=== PATIENT | female | born 2000 | race Hispanic/Latino ===

== ENCOUNTER 2019-06-19 16:47 | Emergency (ER) | payer OTHER, SELFPAY ==
--- OUTSIDE RECORDS SUMMARY | 2019-06-19 16:49 | XMS REPORT ---
:[address] [facility] t Address [address] [place] [address] Care Team Providers Name Role Phone Unavailable Unavailable Unavailable Problems This patient has no known problems. Allergies, Adverse Reactions, Alerts This patient has no known allergies or adverse reactions. Medications This patient has no known medications.
--- OUTSIDE RECORDS SUMMARY | 2019-06-19 16:49 | XMS REPORT | Summary of Care ---
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 Encounter Details Date Type Department Care Team Description 05/02/2019 Office Visit [facility]- Jessica Smith Enc ounter for Nexplanon removal (Primary Dx); [facility] Encounter for initial prescription of co ntraceptive pills; [address] Elevated BP without diagnosis of hyperte nsion; [place], [place] A Pain pelvic [id number] [place], [place] [id number] Allergies Active Allergy Reactions Severity Noted Date Comments Codeine Hives 05/17/2017 documented as of this encounter (statuses as of 05/02/2019) Medications Medication Sig Dispensed Refills Start Date End Date Status norethindrone 0.35 mg Take 1 tablet by 4 Package 3 05/02/2019 Active tabletIndications: mouth daily. Encounter for initial prescription of contraceptive pills documented as of this encounter (statuses as of 05/02/2019) Active Problems Problem Noted Date Encounter for initial prescription of contraceptive pi lls 05/02/2019 BMI 40.0-44.9, adult 02/15/2019 Elevated BP without diagnosis of hypertension 02/15/19 20 Generalized anxiety disorder 04/24/2015 Overview: Tried Paxil and she had adverse effects - depression/lack of motivation. Abnormal liver enzymes 01/16/2014 Overview: Patient has had workup for abdominal pain in the past with [facility] gastroenterology. Workup revealed mild fatty liver disease with mild elevations in liver function tests. Last results available are from January 2014 and re vealed an AST 29, ALT 33 (range is 6-30 U/L), GGT 27 (14-26), and alkaline phosphatase 106. Mother reports that the patient was given Zantac for suspected gastroe sophageal reflux and had no improvement in her symptoms. She was lost to follow up with gastroenterology. Note: Immunity panel revealed lack of protection against hepatitis B, patient should be revaccinated with follow-up titers. Irregular menstrual cycle 09/26/2013 Overview: Patient has secondary amenorrhea and has on average [address] Hancock is managing this issue - began Provera 12/16 015 Acanthosis nigricans 09/26/2013 Dyslexia documented as of this encounter (statuses as of 05/02/2019) Resolved Problems Problem Noted Date Resolved Date Nexplanon in place 02/25/2016 05/02/2019 Chronic pain of breast 04/25/2015 02/15/2019 Childhood obesity 09/26/2013 02/15/2019 Overview: Lab work available from September 2013 reve als cholesterol 153, elevated triglycerides 193, low HDL 33 and normal LDL 81, fasti ng blood glucose 82, hemoglobin A1c of 4.8. Normal thyroid function tests found date d 01/2014. Failed vision screen 09/26/2013 02/15/2019 Overview: Patient wears corrective lenses documented as of this encounter (statuses as of 05/02/2019) Immunizations Name Administration Dates Next Due DTAP 10/16/2003, 02/27/2003, 03/16/2000, 01/11/2000, 1999 HEPATITIS A 09/26/2013, 05/13/2005 HIB 4 Dose Schedule 02/27/2003, 06/15/2000, 03/16/2000, 1999 HPV9 02/15/2019 Hep B, Adol or Pedi Dosage 03/16/2000, 1999, 0 MMR 10/16/2003, 02/27/2003 Meningococcal Polysaccharide (groups 09/29/2011 A, C, Y and W-135) conjugate vaccine (MCV4P) Polio (IPV/OPV) 10/16/2003, 03/16/2000, 01/11/2000, 1999 Tdap 09/29/2011 Varicella (varivax)(chicken pox) 09/29/2011, 02/27/2003 documented as of this encounter Social History Tobacco Use Types Packs/Day Years Used Date Current Some Day Smoker Cigarettes Star juan: 02/15/2017 Smokeless Tobacco: Never Used Alcohol Use Drinks/Week oz/Week Comments No Sex Assigned at Date Recorded Not on file Job Start Date Occupation Industry Not on file Not on file Not on file Travel History Travel Start Travel End No recent travel history available. documented as of this encounter Last Filed Vital Signs Vital Sign Reading Time Taken Comments Blood Pressure 143/83 05/02/2019 2:30 PM CDT Pulse 69 05/02/2019 2:30 PM CDT Temperature 36.1 C (97 F) 05/02/2019 2:29 PM CDT Respiratory Rate 16 05/02/2019 2:29 PM CDT Oxygen Saturation - - Inhaled Oxygen Concentration - - Weight 114.4 kg (252 lb 5 oz) 05/02/2019 2:29 PM CDT Height 160 cm (5' 3") 05/02/2019 2:29 PM CDT Body Mass Index 44.7 05/02/2019 2:29 PM CDT documented in this encounter Patient Instructions Patient InstructionsTori Anderson LVN - 05/02/2019 2:45 PM CDT Patient Education Control: The Pill control pills contain hormones that help prevent . The pills are prescribed by your healthcare provider. There are many types of control pills available. If you have side effects from one type of pill, tell your healthcare provider. He or she may be able to prescribe a pill that works better for you. rates Talk to your healthcare provider about the effectiveness of this control method. Using the pill Take one pill daily. Take it at around the same time each day. Follow your healthcare providers guidelines on when to start your first pack of pills. You mayneed to use another form of control for a week or more after you start. Know what to do if you forget to take a pill. (Consult your healthcare provider or check the package.) If you miss more than one pill, you may need to use a backup method of control for a weekor more. Pros Low rate No interruption to sex Easy to use Can help make periods more regular May lower your risk of ovarian cysts and certain cancers May decrease menstrual cramps, menstrual flow, and acne Cons Does not protect against sexually transmittedinfection (STIs) Requires taking a pill on time each day May not work as well when taken with certain other medicines (check with your pharmacist) May cause side effects such as nausea, irregular bleeding, headaches, breast tenderness, fatigue,or mood changes (these often go away within 3 months) May increase the risk of blood clots,heart attack, and stroke The pill may not be for you The pill may not be for you if: You are a smoker and over age 35 You havehigh blood pressureor gallbladder, liver, cerebrovascular or heart disease You have diabetes, migraines, blood clot in the vein or artery, lupus, depression, certain lipid disorders, or take medicines that interfere with the pill In these cases, discuss the risks with your healthcare provider. [employer] last reviewed this educational content on 04/14/201619996966-3543 [facility]. [address] [place] [address]. All rights reserved. This information is not intended as a substitute for professional medical care. Always follow your healthcare professional's instructions. documented in this encounter Progress Notes Jessica Smith FNP - 05/02/2019 2:45 PM CDTNexplanon REMOVAL PROCEDURE NOTE Pt had nexplanon replaced in 02/2019. She reports about a week after insertion, she started having intermittent severe abdominal cramping. The cramping is now daily. She does not have any bleeding. She desires removal of nexplanon and to start OCPs. Pt with consistently elevated blood pressures when inclinic ranging 117/65-141/94. Denies symptoms. Preoperative Diagnoses: Nexplanon Removal I discussed the likelihood of success with Nexplanon removal procedure during the consent process with the patient. Staff present for procedure: Latia DURÁNP-C Pt reports no past or present history of physical, sexual, and emotional abuse. The risks, benefits and alternatives were discussed. The patient voiced her understanding. She wished to proceed and an informed consent was obtained. Patient has been identified by name and and will be undergoing Nexplanon removal. Patient is right handed. Patient, procedure and site have been confirmed by the following clinicians: Latia Marcelo and Julieta Anderson LVN. Timeout performed by Latia MCGRATH and patient immediately prior to the procedure. Procedure: The patient is placed on the exam table in a supine position. The implant was palpated onthe inner aspect of the left arm. The Nexplanon implant site is prepped with Betadine. Local area isinjected subcutaneously with 2 cc of lidocaine 1% without epinephrine along the planned incision site. A small incision is made with a sterile scalpel. Straight hemostat is used to access the implant through the incision site. The implant is secured with the hemostat and carefully removed through theincision. There is minimal bleeding from the incision site. Sterile gauze and a pressure dressing is placed over the removal site. The patient tolerated the procedure well and there were no complications. Post-procedure instructions given. Patient verbalized understanding. Staff present for procedure: QUANG Mena. Findings None Assessment Nexplanon Removed Plan Encounter for Nexplanon removal (primary encounter diagnosis) Comment: Plan: Encounter for initial prescription of contraceptive pills Comment: D/w pt at length various BCMs including OCPs, Patch, Depo Provera, vaginal rings, condoms, implants and iuds. We discussed the risk/benefits/side effects of each. After discussion, pt desires to proceed with OCPs. Discussed would not recommend combination OCP given elevated BP. Will start progestin only pill. Preg test neg today. Will start pills today. Pt also smokes, counseled on cessationand risk for cardiovascular events. Condoms x2 weeks. R/B/A discussed. Plan: POCT TEST, norethindrone 0.35 mg tablet Elevated BP without diagnosis of hypertension Comment: Plan: Patient encouraged to make lifestyle modifications, limit salt intake, weight loss encouraged,exercise 30min/day 4-5 times a week. Healthy diet high in fruits, veggies, whole grains, low-fat dairy, moderate alcohol consumption Pain pelvic Comment: discussed symptoms may or may not be related to Nexplanon, as she had a nexplanon previously without issue. Plan: if symptoms do not resolve with nexplanon removal, RTC for evaluation. Patient visualized removed Nexplanon. Tori latif LVN - 05/02/2019 2:45 PM CDTPatient present in clinic for OCP start. Dispensed OCPs from clinic stock x 4 Name: Talonrone LOT: [id number] Cont:881-T Exp:11/2020. Patient provided with education both written and verbal on control method chosen. Instructed patient to use a back up method for one month. Educated patient to RTC in 3 months for refill/providervisit. Patient verbalized understanding. Johnny Moeller RN - 05/02/2019 2:45 PM CDTPt in clinic for Nexplanon removal. Informed consent signed and obtained from patient. documented in this encounter Plan of Treatment Date Type Specialty Care Team Description 07/25/2019 Office Visit [facility] Satellites Monika Woodson, [facility] [address] [address] [phone] Health Maintenance Due Date Last Done Comments HPV VACCINES (2 - Female 03/15/2019 02/15/2019 3-dose series) CHLAMYDIA SCREENING 02/16/2020 02/15/2019 INFLUENZA VACCINE (#1) 2020 Postponed from 10/15/2018 (Refu sed) WELL CARE VISIT: 12-02/16/2020 02/15/2019, 09/26/2013 YEARS (yearly) DTaP,Tdap,and Td Vaccines 09/28/2021 09/29/2011, 10/16/2003 , (7 - Td) 02/27/2003, Additional history exists MENINGOCOCCAL VACCINE Aged Out 09/29/2011 No longer eligible based on patient 's age to complete this topic VARICELLA VACCINES Completed 09/29/2011, 02/27/2003 MENINGOCOCCAL B VACCINES Discontinued PNEUMOCOCCAL 0-64 YEARS Discontinued COMBINED SERIES documented as of this encounter Procedures Procedure Name Priority Date/Time Associated Diagnosis Comme nts POCT Routine 05/02/2019 3:07 Encounter for initial Results for this TEST PM CDT prescription of procedure ar e in contraceptive pills the resu lts section. documented in this encounter Results POCT TEST (05/02/2019 3:07 PM CDT) Pathologist Sig nature POCT PREG Negative On board controls acceptable Yes with C Line POCT PREG LOT # POCT PREG TEST DATE Specimen Urine - URINE, CLEAN CATCH documented in this encounter Visit Diagnoses Diagnosis Encounter for Nexplanon removal - Primar y Surveillance of previously prescribed im plantable subdermal contraceptive Encounter for initial prescription of co ntraceptive pills General counseling for prescription of o ral contraceptives Elevated BP without diagnosis of hyperte nsion Pain pelvic Unspecified symptom associated with fema le genital organs documented in this encounter Insurance Payer Benefit Plan Subscriber ID Effective Phone Address Typ e / Group Dates [facility] xxxxxxxxx 2019-Viktoria [phone] Medicaid WOMEN nt [address] [place] [address] documented as of this encounter
--- OUTSIDE RECORDS SUMMARY | 2019-06-19 16:49 | XMS REPORT | Summary of Care ---
:1999 Author Organization [facility] Address [address] [place] [address] Care Team Providers Name Role Phone Doctor Unassigned, Name Medicaid Hmo Unavailable Brittany Smith CALL CENTER RN Primary Care Provider Reason for Visit Reason Comments Assessment Appointment Encounter Details Date Type Department Care Team Description 03/03/2019 Telephone [facility]- Jessica Smith, Ass essment; [facility] Appointment [address] [facility] [address] [place] [address] [phone] Allergies Active Allergy Reactions Severity Noted Date Comments Codeine Hives 05/17/2017 documented as of this encounter (statuses as of 03/07/2019) Medications No known medicationsdocumented as of this encounter (statuses as of 03/07/2019) Active Problems Problem Noted Date BMI 40.0-44.9, adult 02/15/2019 Elevated BP without diagnosis of hypertension 02/15/[address] 02/25/2016 Generalized anxiety disorder 04/24/2015 Overview: Tried Paxil and she had adverse effects - depression/lack of motivation. Abnormal liver enzymes 01/16/2014 Overview: Patient has had workup for abdominal pain in the past with [facility] gastroenterology. Workup revealed mild fatty liver disease [...] as of this encounter (statuses as of 03/07/2019) Resolved Problems Problem Noted Date Resolved Date Chronic pain of breast 04/25/2015 02/15/2019 Childhood [...] as of this encounter (statuses as of 03/07/2019) Immunizations Name Administration Dates Next Due DTAP [...] of this encounter Last Filed Vital Signs Not on filedocumented in this encounter Plan of Treatment Date Type Specialty Care Team Description 03/20/2019 Nurse Visit [facility] Health Maintenance Due Date Last Done Comments HPV VACCINES (2 - Female 03/15/2019 02/15/2019 3-dose series) CHLAMYDIA SCREENING 02/16/2020 02/15/2019 INFLUENZA VACCINE (#1) 2020 Postponed from 10/15/2018 (Refu sed) DTaP,Tdap,and Td Vaccines 09/28/2021 09/29/2011, 10/16/2003 , (7 - Td) 02/27/2003, Additional history exists MENINGOCOCCAL VACCINE Aged Out 09/29/2011 No longer eligible based on patient 's age to complete this topic VARICELLA VACCINES Completed 09/29/2011, 02/27/2003 MENINGOCOCCAL B VACCINES Discontinued PNEUMOCOCCAL 0-64 YEARS Discontinued COMBINED SERIES documented as of this encounter Results Not on filedocumented in this encounter Insurance Payer Benefit Plan Subscriber ID Effective Phone Address Typ e / Group Dates [facility] [place] [facility] xxxxxxxxx 2019-Prese [phone] Medicaid WOMEN nt [address] [place] [address] documented as of this encounter
--- OUTSIDE RECORDS SUMMARY | 2019-06-19 16:50 | XMS REPORT | Summary of Care ---
:1999 Author Organization [facility] Address [address] [place] [address] Care Team Providers Name Role Phone Doctor Unassigned, Name Medicaid Hmo Unavailable Brittany Smith PLATE COLORER Primary Care Provider Reason for Visit Reason Comments COOK SHIP problem Encounter Details Date Type Department Care Team Description 05/02/2019 Office Visit [facility]- Jessica Smith Enc ounter for Nexplanon removal (Primary Dx); [facility] Encounter for initial prescription of co ntraceptive pills; [address] Elevated BP without diagnosis of hyperte nsion; [place], [place] Oscar A Pain pelvic [address] [place], [place] [address] Allergies Active Allergy Reactions Severity Noted Date [...] for abdominal pain in the past with [facility] gastroenterology. Workup revealed mild fatty liver [...] discuss the risks with your healthcare provider. [employer] last reviewed this educational content on 04/14/201619994607-2643 [employer]. [address] [place] [address]. All rights reserved. This information is not [...] clinic stock x 4 Name: Talonrone LOT: [id number] Cont:881-[id number] Exp:11/2020. Patient provided with education both [...] 07/25/2019 Office Visit OB Satellites Monika Woodson, [facility] [address] [address] [phone] Health Maintenance Due Date Last Done Comments [...] Address Typ e / Group Dates [facility] xxxxxxxxx 2019-Viktoria [phone] Medicaid WOMEN nt [address] [place] [address] documented as of this encounter
--- OUTSIDE RECORDS SUMMARY | 2019-06-19 16:50 | XMS REPORT | Summary of Care ---
:1999 Author Organization [facility] Address [address] [place] [address] Care Team Providers Name Role Phone Doctor Unassigned, Name Medicaid Hmo Unavailable Brittany Smith Primary Care Provider Encounter Details Date Type Department Care Team Description 05/02/2019 Orders Only [facility] Doctor Unassigned, No [address] [facility] Name [id number] [place] [address] Allergies Active Allergy Reactions Severity Noted Date [...] for abdominal pain in the past with [facility] gastroenterology. Workup revealed mild fatty [...] 07/25/2019 [facility] [address] [address] [phone] Health Maintenance Due Date Last Done Comments HPV VACCINES (2 - Female 03/15/2019 02/15/2019 3-dose series) CHLAMYDIA SCREENING 02/16/2020 02/15/2019 INFLUENZA VACCINE (#1) 2020 Postponed from 10/15/2018 (Refu sed) WELL CARE VISIT: -02/16/2020 02/15/2019, 09/26/2013 YEARS (yearly) DTaP,Tdap,and Td Vaccines [...] Name Priority Date/Time Associated Diagnosis Comme nts DISCLOSURE AND CONSENT, Routine 05/02/2019 12:01 AM MEDICAL AND SURGICAL CDT PROCEDURES documented in this encounter Results Not on filedocumented in this encounter Insurance Payer Benefit Plan Subscriber ID Effective Phone Address Typ e / Group Dates [facility] [place] [id number] xxxxxxxxx 2019-Prese [phone] [address] Medicaid WOMEN nt [address] [place] [address] documented as of this encounter
--- NOTE | 2019-06-19 17:53 | RAD REPORT ---
EXAM DESCRIPTION: RAD - Foot Left 3 View - 06/19/2019 5:45 pm CLINICAL HISTORY: Left Foot pain FINDINGS: No fracture or dislocation is seen.
[2019-06-19] MEDS ORDERED: IBUPROFEN 400 MG TAB ONE (18:35)
--- NOTE | 2019-06-19 19:10 | EDPHYS ---
Physician Documentation [facility] Name: Melisa Trammell Age: 18 yrs Sex: Female : 2000 Arrival Date: 06/19/2019 Time: 16:51 Bed 24 Private MD: ED Physician Luis Rivera HPI: 06/18 17:24 This 18 yrs old Female presents to ER via Wheelchair with complaints of Toe jmm Injury. 17:24 The patient presents with an injury, pain. Onset: The symptoms/episode began/occurred jmm acutely, yesterday. Modifying factors: The symptoms are alleviated by elevation of extremity, the symptoms are aggravated by weight bearing, movement. Associated signs and symptoms: Pertinent positives: Pertinent negatives: fever, numbness. WOUND CARE SPECIALIST: 17:23 LMP N/A - control method vc Historical: - Allergies: 17:05 Codeine; ll1 - PMHx: 17:05 fatty liver; ll1 - PSHx: 17:05 None; ll1 - Immunization history:: Adult Immunizations up to date. - Social history:: Smoking status: Patient reports the use of cigarette tobacco products, smokes one-half pack cigarettes per day, Patient/guardian denies using alcohol, street drugs. ROS: 17:24 Constitutional: Negative for fever, chills, and weight loss, Cardiovascular: Negative jmm for chest pain, palpitations, and edema, Respiratory: Negative for shortness of breath, cough, wheezing, and pleuritic chest pain. 17:24 MS/extremity: Positive for injury or acute deformity, pain. 17:24 All other systems are negative. Exam: 17:24 Constitutional: This is a well developed, well nourished patient who is awake, alert, jmm and in no acute distress. Head/Face: atraumatic. Eyes: EOMI, no conjunctival erythema appreciated ENT: Moist Mucus Membranes Neck: Trachea midline, Supple Chest/axilla: Normal chest wall appearance and motion. Cardiovascular: Regular rate and rhythm. No edema appreciated Respiratory: Normal respirations, no respiratory distress appreciated Abdomen/GI: Non distended, soft Back: Normal ROM 17:24 Musculoskeletal/extremity: pain on palpation of the left ip joint of the 2nd toe. < 2 sec dist cap refill. NVI. 17:24 Skin: ecchymosis noted to the left toe. 17:24 Psych: Behavior/mood is pleasant, cooperative. Vital Signs: 17:03 BP 146 / 109; Pulse 83; Resp 18; Temp 98.0; Pulse Ox 99% ; Pain 9/10; ll1 17:15 BP 129 / 90; Pulse 65; Resp 18; Pulse Ox 99% on R/A; vc 18:00 BP 153 / 69; Pulse 57; Resp 18; Pulse Ox 100% on R/A; vc MDM: 17:[address] Patient [address] [facility] 17:26 Data reviewed: vital signs, nurses notes. [facility] 19:08 Data reviewed: radiologic studies, plain films. Counseling: I had a detailed discussion [facility] with the patient and/or guardian regarding: the historical points, exam findings, and any diagnostic results supporting the discharge/admit diagnosis, radiology results, the need for outpatient follow up, to return to the emergency department if symptoms worsen or persist or if there are any questions or concerns that arise at home. ED course: Patient is alert and non toxic in appearance in the ED. Xray negative. Advised to follow up with pcp and otherwise given strict return precautions. patient understood and agrees with the plan of care. . 06/18 17:23 Order name: Foot Left 3 View XRAY; Complete Time: 18:[address] [facility] 06/18 18:02 Order name: Misc. Order: liz tape, ortho shoe, crutches; Complete Time: 18:[address] [facility] Administered Medications: 18:34 Drug: Motrin 800 mg Route: PO; vc 18:45 Follow up: Response: No adverse reaction vc Disposition: 06/19/19 19:09 Discharged to Home. Impression: Sprain of interphalangeal joint of left lesser toe(s). - Condition is Stable. - Discharge Instructions: Foot Sprain. - Work release form, Medication Reconciliation Form, Thank You Letter, Antibiotic Education, Prescription Opioid Use form. - Follow up: Villa Strange DPM; When: 2 - 3 days; Reason: Recheck today's complaints, Continuance of care, Re-evaluation by your physician. Signatures: Dispatcher [employer] EDMS Adelso Zuleta PA PA jmm Calcote, Vanessa, RN RN China Castillo RN RN ll1 Corrections: (The following items were deleted from the chart) 19:25 19:09 06/19/2019 19:09 Discharged to Home. Impression: Sprain of interphalangeal joint vc of left lesser toe(s). Condition is Stable. Forms are Medication Reconciliation Form, Thank You Letter, Antibiotic Education, Prescription Opioid Use. Follow up: Villa Strange; When: 2 - 3 days; Reason: Recheck today's complaints, Continuance of care, Re-evaluation by your physician. ezekiel
--- NOTE | 2019-06-19 19:10 | ER ---
Nurse's Notes [facility] Name: Melisa Trammell Age: 18 yrs Sex: Female : 2000 Arrival Date: 06/19/2019 Time: 16:51 Bed 24 Private MD: Diagnosis: Sprain of interphalangeal joint of left lesser toe(s) Presentation: 06/18 17:03 Chief complaint: Patient states: Pain to left foot 2nd toe since hitting it while ll1 walking yesterday at 1600. Coronavirus screen: Proceed with normal triage. Patient denies a cough. Patient denies shortness of breath or difficulty breathing. Patient denies measured and/or subjective temperature greater than 100.4F prior to today's visit. Patient denies travel on a cruise ship or to a country the [facility] currently lists as an affected area. Patient denies contact with known and/or suspected case of COVID-19. Ebola Screen: Patient denies travel to an Ebola-affected area in the 21 days before illness onset. Initial Sepsis Screen: Does the patient meet any 2 criteria? No. Patient's initial sepsis screen is negative. Does the patient have a suspected source of infection? No. Patient's initial sepsis screen is negative. Risk Assessment: Do you want to hurt yourself or someone else? Patient reports no desire to harm self or others. Onset of symptoms was June 18, 2019. 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 - Social history:: Smoking status: Patient reports the use of cigarette tobacco products, smokes one-half pack cigarettes per day, Patient/guardian denies using alcohol, street drugs. Screenin:18 Abuse screen: Denies threats or abuse. Nutritional screening: No deficits noted. vc Tuberculosis screening: No symptoms or risk factors identified. Fall Risk None identified. Assessment: 17:11 General: Appears in no apparent distress. uncomfortable, Behavior is calm, cooperative, vc appropriate for age. Pain: Complains of pain in left second toe. Pain: Pain does not radiate. Pain currently is 9 out of 10 on a pain scale. Quality of pain is described as sharp, squeezing, throbbing, Pain began 1 day ago. Neuro: Level of Consciousness is awake, alert, obeys commands, Oriented to person, place, time, situation, Appropriate for age. Cardiovascular: Capillary refill < 3 seconds Patient's skin is warm and dry. Respiratory: Airway is patent Respiratory effort is even, unlabored, Respiratory pattern is regular, symmetrical. GI: No signs and/or symptoms were reported involving the gastrointestinal system. : No signs and/or symptoms were reported regarding the genitourinary system. EENT: No deficits noted. Derm: Bruising that is dark purple, on left second toe and Left second toenail. Musculoskeletal: Circulation, motion, and sensation intact. 18:00 Reassessment: Patient appears in no apparent distress at this time. Patient and/or vc family updated on plan of care and expected duration. Pain level reassessed. Patient is alert, oriented x 3, equal unlabored respirations, skin warm/dry/pink. 18:47 Reassessment: Patient appears in no apparent distress at this time. Patient and/or vc family updated on plan of care and expected duration. Pain level reassessed. Patient is alert, oriented x 3, equal unlabored respirations, skin warm/dry/pink. Patient states symptoms have improved. Vital Signs: 17:03 BP 146 / 109; Pulse 83; Resp 18; Temp 98.0; Pulse Ox 99% ; Pain 9/10; ll1 17:15 BP 129 / 90; Pulse 65; Resp 18; Pulse Ox 99% on R/A; vc 18:00 BP 153 / 69; Pulse 57; Resp 18; Pulse Ox 100% on R/A; vc ED Course: 16:51 Patient arrived in ED. ag5 16:53 Adelso Zuleta PA is PHCP. [facility] 16:53 Luis Rivera MD is Attending Physician. [facility] 17:05 Triage completed. ll1 17:05 Arm band placed on Patient placed in an exam room, on a stretcher. ll1 17:08 Savana Garay, WALLACE is Primary Nurse. vc 17:10 Ice pack to injury. vc 17:19 Patient has correct armband on for positive identification. Bed in low position. Call vc light in reach. Pulse ox on. NIBP on. 17:46 Foot Left 3 View XRAY In Process Unspecified. EDMS 18:38 Matthew tape left second toe Ortho shoe applied to left foot. vc 18:45 No provider procedures requiring assistance completed. Patient did not have IV access vc during this emergency room visit. 19:09 Villa Strange DPM is Referral Physician. ezekiel Administered Medications: 18:34 Drug: Motrin 800 mg Route: PO; vc 18:45 Follow up: Response: No adverse reaction vc Outcome: 19: Discharge ordered by . ezekiel 19:25 Patient left the ED. vc 19:25 Discharged to home via wheelchair, with crutches. vc 19:25 Condition: good 19:25 Discharge instructions given to patient, Instructed on discharge instructions, follow up and referral plans. crutch walking, Demonstrated understanding of instructions, follow-up care, crutch walking. Signatures: Dispatcher [employer] EDMS Adelso Zuleta PA PA jmm Gaskin, Ajare ag5 Savana Garay RN RN China Castillo RN RN ll1 Corrections: (The following items were deleted from the chart) 17:23 17:11 Pain: Pain does not radiate. Pain currently is 9 out of 10 on a pain scale. vc Quality of pain is described as sharp, squeezing, throbbing, Pain began 30 min ago. vc
[2019-06-19 22:48] VITALS: TEMP 98
[2019-06-19 22:49] VITALS: BP 153/69; O2SAT 100
== END 2019-06-19 19:25 | disposition home or self-care (01) ==
LOC: ER 16:47
DX: S93.515A Sprain of interphalangeal joint of left lesser toe(s), initial encounter (principal); W22.8XXA Striking against or struck by other objects, initial encounter; Y93.01 Activity, walking, marching and hiking; Y92.9 Unspecified place or not applicable; F17.210 Nicotine dependence, cigarettes, uncomplicated; Z88.5 Allergy status to narcotic agent
CPT/HCPCS: 99284

== ENCOUNTER 2019-12-26 10:00 | Emergency (ER) | payer SELFPAY ==
--- OUTSIDE RECORDS SUMMARY | 2019-12-26 10:34 | XMS REPORT | Continuity of Care Document ---
:2000 Author Organization [facility] t Address [address] [place] [address] Care Team Providers Name Role Phone Mir Garza Attending Clinician Brittany Serra Attending Clinician Doctor Unassigned, Name Attending Clinician Unavailable Problems This patient has no known problems. Allergies, Adverse Reactions, Alerts This patient has no known allergies or adverse reactions. Medications This patient has no known medications. Procedures This patient has no known procedures. Encounters Start End Encounter Admission Attending Care Care Encounter Source Date/Time Date/Time Type Type Clinicians Facility Department ID 2019-09-17 2019-09-17 Letter CARMEN Woodson [id number] 00:00:00 00:00:00 (Out) Rupinder Hester [facility] [id number] [facility] [id number] MATERNAL [id number] & CHILD 107 [facility] 2019-05-02 2019-05-02 Office CARMEN Smith [id number] 14:21:33 15:07:33 Visit Jessica Soto [facility] [id number] [facility] [id number] MATERNAL [id number] & CHILD 107 [facility] 2019-05-02 2019-05-02 Orders Doctor RAYGOZA [id number] 00:00:00 00:00:00 Only Unassigned, VALARIE [id number] [place] [facility] [id number] Results This patient has no known results.
--- NOTE | 2019-12-26 11:22 | RAD REPORT ---
EXAM DESCRIPTION: CT - Head Brain Wo Cont - 12/26/2019 11:11 am CLINICAL HISTORY: headacche Headache, drowsiness COMPARISON: HEAD BRAIN W O CONTRAST dated 01/16/2008 TECHNIQUE: All CT scans are performed using dose optimization technique as appropriate and may inclu de automated exposure control or mA/KV adjustment according to patient size. FINDINGS: No intracranial hemorrhage, hydrocephalus or extra-axial fluid collection.No areas of brai n edema or evidence of midline shift. The paranasal sinuses and mastoids are clear. The calvarium is intact. IMPRESSION: No acute intracranial abnormality.
[2019-12-26] MEDS ORDERED: ACETAMINOPHEN 325 MG TABLET ONE (11:27)
--- NOTE | 2019-12-26 11:46 | EDPHYS ---
Physician Documentation [facility] Name: Melisa Trammell Age: 19 yrs Sex: Female : 2000 Arrival Date: 12/26/2019 Time: 10:11 Bed 19 Private MD: ED Physician Davidson Camacho HPI: 12/25 10:17 This 19 yrs old Female presents to ER via Ambulatory with complaints of jmm Headache. 10:17 The patient complains of pain to the right ear, right jaw, right latter day, right jmm zygomatic area and right cheek. Onset: The symptoms/episode began/occurred gradually. Associated signs and symptoms: Pertinent positives: vomiting. This is a 19 year old female with a history of fatty liver that presents to the ED with complaints of right sided facial pain and right sided headache beginning this past Tuesday. Patient states having similar episodes in the past but not as intense. Described as throbbing and shocks which radiates from behind the right ear, behind the right eye and down the right jaw. . 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 Not . No period since 2019 ll1 Historical: - Allergies: 10:24 Codeine; ll1 - PMHx: 10:24 fatty liver; ll1 - PSHx: 10:24 None; ll1 - Immunization history:: Flu vaccine is up to date. - Social history:: Smoking status: Patient reports the use of cigarette tobacco products, smokes one-half pack cigarettes per day. ROS: 10:17 Constitutional: Negative for fever, chills, and weight loss, Cardiovascular: Negative jmm for chest pain, palpitations, and edema, Respiratory: Negative for shortness of breath, cough, wheezing, and pleuritic chest pain. 10:17 Neuro: Positive for headache. 10:17 All other systems are negative. Exam: 10:17 Constitutional: This is a well developed, well nourished patient who is awake, alert, jmm and in no acute distress. 10:17 Eyes: EOMI, no conjunctival erythema appreciated ENT: Moist Mucus Membranes Neck: Trachea midline, Supple Chest/axilla: Normal chest wall appearance and motion. Cardiovascular: Regular rate and rhythm. No edema appreciated Respiratory: Normal respirations, no respiratory distress appreciated Abdomen/GI: Non distended, soft Back: Normal ROM Skin: General appearance color normal MS/ Extremity: Moves all extremities, no obvious deformities appreciated, no edema noted to the lower extremities 10:17 Head/face: Noted is tenderness, that is moderate, of the right ear, right zygomatic area and right cheek. 10:17 Neuro: Orientation: is normal, Mentation: is normal, Memory: is normal. 10:17 Psych: Behavior/mood is pleasant, cooperative. Vital Signs: 10:19 BP 123 / 78; Pulse 60; Resp 17; Temp 98.1; Pulse Ox 97% ; Pain 8/10; ll1 MDM: 10:17 Patient medically screened. [facility] 11:43 Data reviewed: vital signs, nurses notes. Counseling: I had a detailed discussion with [facility] the patient and/or guardian regarding: the historical points, exam findings, and any diagnostic results supporting the discharge/admit diagnosis, the need for outpatient follow up, to return to the emergency department if symptoms worsen or persist or if there are any questions or concerns that arise at home. 12:29 ED course: Patient is alert and non toxic in appearance in the ED. Patient has had [facility] similar symptoms in the past. I do not suspect SAH at this time. LP along with risks discussed with the patient whom declined. Will follow up with neuro and otherwise given strict return precautions. Patient understood and agrees with the plan of care. . 12/25 10:54 Order name: CT Head Brain wo Cont; Complete Time: 11:26 [facility] Administered Medications: 11:16 Drug: Tylenol 650 mg Route: PO; ll1 Disposition: 12/26 05:29 Co-signature as Attending Physician, Davidson Camacho MD I agree with the assessment and [facility] plan of care. Disposition: 12/26/19 11:45 Discharged to Home. Impression: Headache. - Condition is Stable. - Discharge Instructions: General Headache Without Cause. - Prescriptions for Medrol (Haris) 4 mg Oral Tablets, Dose Pack - take 1 tablet by ORAL route as directed - follow package instructions; 1 packet. - Medication Reconciliation Form, Thank You Letter, Antibiotic Education, Prescription Opioid Use, Work release form form. - Follow up: Tobias Zhang MD; When: 1 - 2 days; Reason: Recheck today's complaints, Continuance of care, Re-evaluation by your physician. Signatures: Dispatcher [employer] Davidson Berrios MD MD cha Mickail, Adelso, PA PA [facility] China Moya, RN RN ll1 Corrections: (The following items were deleted from the chart) 12/25 11:46 11:45 12/26/2019 11:45 Discharged to Home. Impression: Headache. Condition is Stable. [facility] Forms are Work release form, Medication Reconciliation Form, Thank You Letter, Antibiotic Education, Prescription Opioid Use. Follow up: Private Physician; When: 2 - 3 days; Reason: Recheck today's complaints, Continuance of care, Re-evaluation by your physician. [facility] 12:07 11:46 12/26/2019 11:45 Discharged to Home. Impression: Headache. Condition is Stable. ll1 Discharge Instructions: General Headache Without Cause. Prescriptions for Medrol (Haris) 4 mg Oral Tablets, Dose Pack - take 1 tablet by ORAL route as directed - follow package instructions; 1 packet. and Forms are Work release form, Medication Reconciliation Form, Thank You Letter, Antibiotic Education, Prescription Opioid Use. Follow up: Tobias Zhang; When: 1 - 2 days; Reason: Recheck today's complaints, Continuance of care, Re-evaluation by your physician. [facility]
--- NOTE | 2019-12-26 11:46 | ER ---
Nurse's Notes [facility] Name: Melisa Trammell Age: 19 yrs Sex: Female : 2000 Arrival Date: 12/26/2019 Time: 10:11 Bed 19 Private MD: Diagnosis: Headache Presentation: 12/25 10:19 Chief complaint: Patient states: Right sided WHITEHEAD for 2 days with N/V. No fever. ll1 Coronavirus screen: Client denies travel out of the [place] in the last 14 days. headache, nausea, vomiting. Client presents with at least one sign or symptom that may indicate coronavirus-19. Standard/surgical mask placed on the client. The client reports previous COVID testing was negative. Ebola Screen: Patient denies travel to an Ebola-affected area in the 21 days before illness onset. Initial Sepsis Screen: Does the patient meet any 2 criteria? No. Patient's initial sepsis screen is negative. Does the patient have a suspected source of infection? Yes: Other: WHITEHEAD. Risk Assessment: Do you want to hurt yourself or someone else? Patient reports no desire to harm self or others. Onset of symptoms was December 25, 2019. 10:19 Method Of Arrival: Ambulatory 1 10:19 Acuity: BILLIE 3 ll1 Triage Assessment: 10:25 Headache History: The patient has had previous headaches and this one is similar to 1 previous episodes. General: Appears uncomfortable, Behavior is calm, cooperative, appropriate for age. Pain: Complains of pain in R WHITEHEAD Pain currently is 8 out of 10 on a pain scale. Pain began 1 day ago. Is continuous. Pain: Also complains of nausea. Neuro: Level of Consciousness is awake, alert, obeys commands, Oriented to person, place, time, situation, Appropriate for age Licensed Home Inspector are equal bilaterally Moves all extremities. Full function Gait is steady, Speech is normal, Facial symmetry appears normal, Reports headache in right. Cardiovascular: No deficits noted. Respiratory: No deficits noted. GI: Abdomen is flat, Bowel sounds present X 4 quads. Abd is soft and non tender X 4 quads. Reports nausea, vomiting. : No deficits noted. 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 Not . No period since 2019 [facility] Historical: - Allergies: 10:24 Codeine; ll1 - PMHx: 10:24 fatty liver; ll1 - PSHx: 10:24 None; ll1 - Immunization history:: Flu vaccine is up to date. - Social history:: Smoking status: Patient reports the use of cigarette tobacco products, smokes one-half pack cigarettes per day. Screenin:24 Abuse screen: Denies threats or abuse. Nutritional screening: No deficits noted. ll1 Tuberculosis screening: No symptoms or risk factors identified. Fall Risk IV access (20 points). Total Hwang Fall Scale indicates No Risk (0-24 pts). Assessment: 10:27 General: Appears uncomfortable, Behavior is calm, cooperative, appropriate for age. ll1 Pain: Complains of pain in R WHITEHEAD Pain currently is 8 out of 10 on a pain scale. Quality of pain is described as aching. Neuro: Level of Consciousness is awake, alert, obeys commands, Oriented to person, place, time, situation, Appropriate for age Licensed Home Inspector are equal bilaterally Moves all extremities. Full function Gait is steady, Speech is normal, Facial symmetry appears normal, Reports headache. Cardiovascular: No deficits noted. Respiratory: No deficits noted. GI: Abdomen is flat, Bowel sounds present X 4 quads. Abd is soft and non tender X 4 quads. Reports nausea, vomiting. Vital Signs: 10:19 BP 123 / 78; Pulse 60; Resp 17; Temp 98.1; Pulse Ox 97% ; Pain 8/10; ll1 ED Course: 10:11 Patient arrived in ED. mr 10:13 Adelso Zuleta PA is PHCP. [facility] 10:13 Davidson Camacho MD is Attending Physician. [facility] 10:19 China Moya, WALLACE is Primary Nurse. ll1 10:24 Triage completed. ll1 10:24 Arm band placed on Patient placed in an exam room, on a stretcher. ll1 10:26 Patient has correct armband on for positive identification. Bed in low position. Call 1 light in reach. Side rails up X 1. Pulse ox on. NIBP on. 11:10 CT Head Brain wo Cont In Process Unspecified. EDMS 11:46 Tobias Zhang MD is Referral Physician. [facility] Administered Medications: 11:16 Drug: Tylenol 650 mg Route: PO; ll1 Outcome: 11:45 Discharge ordered by . [facility] 12:07 Patient left the ED. ll1 Signatures: Dispatcher [employer] EDMS Adelso Zuleta PA PA jmm Rivera, Mary mr China Moya, RN RN ll1
[2019-12-26 13:59] VITALS: BP 123/78; TEMP 98.1; O2SAT 97
== END 2019-12-26 12:07 | disposition home or self-care (01) ==
LOC: ER 10:00
DX: R51.9 Headache, unspecified (principal); F17.210 Nicotine dependence, cigarettes, uncomplicated; Z88.5 Allergy status to narcotic agent
CPT/HCPCS: 70450; 99283

== ENCOUNTER 2019-12-28 13:06 | Emergency (ER) | payer SELFPAY ==
--- OUTSIDE RECORDS SUMMARY | 2019-12-28 13:09 | XMS REPORT | Continuity of Care Document ---
:2000 Author Organization [facility] t Address [address] [place] [address] Care Team Providers Name Role Phone Mir [...] Department ID 2019-09-17 2019-09-17 Letter CARMEN Woodson [id number] 00:00:00 00:00:00 (Out) Rupinder Hester ENVELOPE ADJUSTER [id number] [facility] [id number] MATERNAL [id number] & CHILD 107 [facility] 2019-05-02 2019-05-02 Office CARMEN Smith [id number] 14:21:33 15:07:33 Visit Jessica Soto ENVELOPE ADJUSTER [id number] [facility] [id number] MATERNAL [id number] & CHILD 107 [facility] 2019-05-02 2019-05-02 Orders Doctor RAYGOZA [id number] 00:00:00 00:00:00 Only Unassigned, VALARIE [id number] [place] [facility] [id number] Results This patient has no known results.
[2019-12-28] MEDS ORDERED: DIPHENHYDRAMINE 50 MG/ML VIAL ONE (16:19)
[2019-12-28] MEDS ORDERED: METOCLOPRAMIDE 10 MG/2mL INJ ONE (16:19)
[2019-12-28] MEDS ORDERED: KETOROLAC 30 MG/ML INJ ONE (16:19)
--- NOTE | 2019-12-28 16:51 | EDPHYS ---
Physician Documentation [facility] Name: Melisa Trammell Age: 19 yrs Sex: Female : 2000 Arrival Date: 12/28/2019 Time: 13:08 Bed 23 Private MD: ED Physician Davidson Camacho HPI: 12/27 16:54 This 19 yrs old Female presents to ER via Ambulatory with complaints of jr8 Headache. 16:54 The patient complains of pain to the right temporal area, right side of forehead, right jr8 occipital area and right base of the skull. 16:56 Onset: The symptoms/episode began/occurred gradually, 2 day(s) ago. Associated signs jr8 and symptoms: The patient has no apparent associated signs or symptoms. Severity of symptoms: At its worst the pain was moderate, in the emergency department the pain is unchanged. The patient has not experienced similar symptoms in the past. The patient has been recently seen by a physician:. Patient seen recently in ED and had CT of head completed for migraine. No acute findings noted at that time. Stated that she has been having intermittent sharp posterior/lateral neck pain on right side for a year or more but now having it wrap up through head and face. Came back today because she could not tolerate the pain . 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 - Social history:: Smoking status: Patient reports the use of cigarette tobacco products, smokes one-half pack cigarettes per day. ROS: 16:56 Eyes: Negative for injury, pain, redness, and discharge, ENT: Negative for injury, jr8 pain, and discharge, Neck: Negative for injury, pain, and swelling, Cardiovascular: Negative for chest pain, palpitations, and edema, Respiratory: Negative for shortness of breath, cough, wheezing, and pleuritic chest pain, Abdomen/GI: Negative for abdominal pain, nausea, vomiting, diarrhea, and constipation, Back: Negative for injury and pain, MS/Extremity: Negative for injury and deformity, Skin: Negative for injury, rash, and discoloration. 16:56 Neuro: Positive for headache. Exam: 16:56 Eyes: Pupils equal round and reactive to light, extra-ocular motions intact. Lids and jr8 lashes normal. Conjunctiva and sclera are non-icteric and not injected. Cornea within normal limits. Periorbital areas with no swelling, redness, or edema. ENT: Nares patent. No nasal discharge, no septal abnormalities noted. Tympanic membranes are normal and external auditory canals are clear. Oropharynx with no redness, swelling, or masses, exudates, or evidence of obstruction, uvula midline. Mucous membranes moist. Neck: Trachea midline, no thyromegaly or masses palpated, and no cervical lymphadenopathy. Supple, full range of motion without nuchal rigidity, or vertebral point tenderness. No Meningismus. Right trapezius muscle and occipital muscle on right side with spasm and point tenderness Cardiovascular: Regular rate and rhythm with a normal S1 and S2. No gallops, murmurs, or rubs. Normal PMI, no JVD. No pulse deficits. Respiratory: Lungs have equal breath sounds bilaterally, clear to auscultation and percussion. No rales, rhonchi or wheezes noted. No increased work of breathing, no retractions or nasal flaring. Abdomen/GI: Soft, non-tender, with normal bowel sounds. No distension or tympany. No guarding or rebound. No evidence of tenderness throughout. Back: No spinal tenderness. No costovertebral tenderness. Full range of motion. Skin: Warm, dry with normal turgor. Normal color with no rashes, no lesions, and no evidence of cellulitis. MS/ Extremity: Pulses equal, no cyanosis. Neurovascular intact. Full, normal range of motion. Neuro: Awake and alert, GCS 15, oriented to person, place, time, and situation. Cranial nerves II-XII grossly intact. Motor strength 5/5 in all extremities. Sensory grossly intact. Cerebellar exam normal. Normal gait. Vital Signs: 13:11 BP 134 / 60; Pulse 73; Resp 16 S; Temp 97.1(TE); Pulse Ox 99% on R/A; Weight 81.65 kg jd3 (R); Height 5 ft. 4 in. (162.56 cm) (R); Pain 9/10; 13:11 Body Mass Index 30.90 (81.65 kg, 162.56 cm) jd3 MDM: 15:39 Patient medically screened. jr8 16:56 Data reviewed: vital signs, nurses notes, old medical records. Data interpreted: Pulse jr8 oximetry: on room air is 99 %. Interpretation: normal. Counseling: I had a detailed discussion with the patient and/or guardian regarding: the historical points, exam findings, and any diagnostic results supporting the discharge/admit diagnosis, the need for outpatient follow up, a neurologist, to return to the emergency department if symptoms worsen or persist or if there are any questions or concerns that arise at home. Response to treatment: the patient's symptoms have resolved after treatment. ED course: Patient feels much better. Discussed with patient that this seems tension in nature. Still recommended f/u with neurology and will send her home on some medication to help if she starts with pain again. Low likely hua of it being SAH based on CT recently and physical exam . 12/27 15:48 Order name: IV; Complete Time: 16:09 jr8 Administered Medications: 16:21 Drug: Reglan 10 mg Route: IVP; Site: right antecubital; iw 16:21 Drug: Benadryl 25 mg Route: IVP; Site: right antecubital; iw 16:21 Drug: TORadol 30 mg Route: IVP; Site: right antecubital; iw Disposition: 12/28 08:21 Co-signature as Attending Physician, Davidson Camacho MD I agree with the assessment and william plan of care. Disposition: 12/28/19 16:50 Discharged to Home. Impression: Migraine. - Condition is Stable. - Discharge Instructions: Migraine Headache. - Prescriptions for Fioricet 50- 325-40 mg Oral tablet - take 2 tablet by ORAL route every 4 hours as needed not to exceed 6 tablets per 24hrs; 20 tablet. - Work release form, Medication Reconciliation Form, Thank You Letter, Antibiotic Education, Prescription Opioid Use form. - Follow up: Tobias Zhang MD; When: 5 - 6 days; Reason: Recheck today's complaints, Continuance of care, Re-evaluation by your physician. - Problem is new. - Symptoms are resolved. Signatures: Davidson Camacho MD MD cha Williams, Irene, RN RN Gen Norton PA PA jr8 Elian Werner RN RN jTamar Warner RN RN Corrections: (The following items were deleted from the chart) 12/27 17:02 16:50 12/28/2019 16:50 Discharged to Home. Impression: Migraine. Condition is Stable. Forms are Medication Reconciliation Form, Thank You Letter, Antibiotic Education, Prescription Opioid Use. Follow up: Tobias Zhang; When: 5 - 6 days; Reason: Recheck today's complaints, Continuance of care, Re-evaluation by your physician. Problem is new. Symptoms are resolved. jr8
--- NOTE | 2019-12-28 16:51 | ER ---
Nurse's Notes [facility] Name: Melisa Trammell Age: 19 yrs Sex: Female : 2000 Arrival Date: 12/28/2019 Time: 13:08 Bed 23 Private MD: Diagnosis: Migraine Presentation: 12/27 13:09 Chief complaint: Patient states: "I came 4 days and they checked me out and did jd3 everything except for a spinal tap and they said come back if it gets gets worse to maybe get that spinal tap.". Coronavirus screen: At this time, the client does not indicate any symptoms associated with coronavirus-19. Ebola Screen: Patient negative for fever greater than or equal to 101.5 degrees Fahrenheit, and additional compatible Ebola Virus Disease symptoms. Initial Sepsis Screen: Does the patient meet any 2 criteria? No. Patient's initial sepsis screen is negative. Does the patient have a suspected source of infection? No. Patient's initial sepsis screen is negative. Risk Assessment: Do you want to hurt yourself or someone else? Patient reports no desire to harm self or others. Onset of symptoms was December 28, 2019. 13:09 Method Of Arrival: Ambulatory jd3 13:09 Acuity: BILLIE 3 jd3 Triage Assessment: 17:00 Headache History: The patient has had previous headaches and this one is similar to iw previous episodes. General: Appears in no apparent distress. Behavior is calm, cooperative. Pain: Pain currently is 7 out of 10 on a pain scale. Pain began 2-3 days ago. Also complains of no other associated symptoms. 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 - Social history:: Smoking status: Patient reports the use of cigarette tobacco products, smokes one-half pack cigarettes per day. Screenin:56 Abuse screen: Denies threats or abuse. Denies injuries from another. Nutritional iw screening: No deficits noted. Tuberculosis screening: No symptoms or risk factors identified. Fall Risk IV access (20 points). Assessment: 16:00 General: Appears in no apparent distress. Pain: Complains of pain in head and back of iw head. Neuro: No deficits noted. Level of Consciousness is awake, alert, obeys commands, Oriented to person, place, time, situation, Moves all extremities. Full function. Cardiovascular: Patient's skin is warm and dry. Respiratory: Respiratory effort is even, unlabored, Respiratory pattern is regular, symmetrical. Derm: Skin is intact, is healthy with good turgor. Musculoskeletal: Range of motion: intact in all extremities. 16:55 Reassessment: Patient appears in no apparent distress at this time. Patient and/or iw family updated on plan of care and expected duration. Pain level reassessed. Patient is alert, oriented x 3, equal unlabored respirations, skin warm/dry/pink. Patient states feeling better. Patient states symptoms have improved. Vital Signs: 13:11 BP 134 / 60; Pulse 73; Resp 16 S; Temp 97.1(TE); Pulse Ox 99% on R/A; Weight 81.65 kg jd3 (R); Height 5 ft. 4 in. (162.56 cm) (R); Pain 9/10; 13:11 Body Mass Index 30.90 (81.65 kg, 162.56 cm) jd3 ED Course: 13:08 Patient arrived in ED. as 13:10 Triage completed. jd3 13:13 Arm band placed on. jd3 15:31 Miriam Smith, WALLACE is Primary Nurse. iw 15:35 Gen Norton PA is PHCP. jr8 15:35 Davidson Camacho MD is Attending Physician. jr8 16:00 Patient has correct armband on for positive identification. iw 16:00 No provider procedures requiring assistance completed. Inserted saline lock: 20 gauge iw in right antecubital area, using aseptic technique. 16:50 Tobias Zhang MD is Referral Physician. jr8 17:01 IV discontinued, intact, bleeding controlled, No redness/swelling at site. Pressure iw dressing applied. Administered Medications: 16:21 Drug: Reglan 10 mg Route: IVP; Site: right antecubital; iw 16:21 Drug: Benadryl 25 mg Route: IVP; Site: right antecubital; iw 16:21 Drug: TORadol 30 mg Route: IVP; Site: right antecubital; iw Outcome: 16:50 Discharge ordered by MD. jr8 17:02 Discharged to home ambulatory. 17:02 Condition: good 17:02 Discharge instructions given to patient, Instructed on discharge instructions, follow up and referral plans. no drinking with medication, Demonstrated understanding of instructions, follow-up care, medications, Prescriptions given X 1. 17:02 Patient left the ED. Signatures: Viola De La Cruz Irene, RN RN Gen Norton PA PA jr8 Davies, Jonathon, RN RN jd3 Harris, Amy, RN RN Corrections: (The following items were deleted from the chart) 13:13 13:11 Pulse 73bpm; Resp 16bpm; Spontaneous; Pulse Ox 99% RA; Temp 97.1F Temporal; 81.65 jd3 kg Reported; Height 5 ft. 4 in. Reported; BMI: 30.9; Pain 9/10; jd3
[2019-12-28 19:30] VITALS: BP 134/60; TEMP 97.1; O2SAT 99
== END 2019-12-28 17:02 | disposition home or self-care (01) ==
LOC: ER 13:06
DX: G43.909 Migraine, unspecified, not intractable, without status migrainosus (principal); F17.210 Nicotine dependence, cigarettes, uncomplicated; Z88.6 Allergy status to analgesic agent
CPT/HCPCS: 96374; 96375; 99283; J1200; J2765

== ENCOUNTER 2021-10-01 09:25 | Emergency (ER) | payer SELFPAY ==
--- OUTSIDE RECORDS SUMMARY | 2021-10-01 09:29 | XMS REPORT | Continuity of Care Document ---
:2000 Author Organization [facility] t Address [address] [place] [address] Care Team Providers Name Role Phone Rupinder Garza Attending Clinician [phone] RUPINDER LUQUE Attending Clinician Unavailable Jessica Serra Attending Clinician JESSICA JC Attending Clinician Unavailable Doctor Unassigned, [place] Attending Clinician Unavailable Payers Payer Name Policy Type Policy Number Effective Date Expiration Date S ource Problems Condition Condition Condition Status Onset Resolution Last Treating Co mments Source Name Details Category Date Date Treatment Clinician Date Encounter Encounter Disease Active Uni vers for for 3-18 ity of initial initial 00:00: [place] prescripti prescripti 00 Me dical on of on of Branch contracept contracept rambo pills rambo pills BMI BMI Disease Active Univers 40.0-44.9, 40.0-44.9, - it y of adult adult 00:00: [address] Elevated Elevated Disease Active Unive rs BP without BP without 02-15 it y of diagnosis diagnosis 00:00: s Medical hypertensi hypertensi Br anch on on Nexplanon Nexplanon Disease Active Uni vers in place in place -11 ity of 00:00: [address] Generalize Generalize Disease Active Overview : Univers d anxiety d anxiety 3-10 Tried ity of disorder disorder 00:00: Paxil and Giorgi as 00 she had Medical adverse Branch effects - depressio n/lack of motivatio n. Abnormal Abnormal Disease Active 2013-02 Overview: Un indira liver liver - Patient ity of enzymes enzymes 00:00: has had [place] 00 workup Medical for Branch abdominal pain in the past with [facility] gastro[facility]ology. Workup revealed mild fatty liver disease with mild elevation s in liver function tests. Last results available are from January 2014 and revealed an AST 29, ALT 33 (range is 6-30 U/L), GGT 27 (14-26), and alkaline phosphata se 106. Mother reports that the patient was given Zantac for suspected gastroeso phageal reflux and had no improveme nt in her symptoms. She was lost to follow up with gastroent erology. Note: Immunity panel revealed lack of protectio n against hepatitis B, patient should be revaccina juan with follow-up titers. Irregular Irregular Disease Active Overview: Univers menstrual menstrual 09-26 Patient ity of cycle cycle 00:00: has 00 secondary Medical amenorrhe Branch a and has on average [address] Hancock is managing this issue - began Provera 12/2014 Acanthosis Acanthosis Disease Active U nivers nigricans nigricans 09-26 ity of 00:00: [place] 00 Medical Branch Dyslexia Dyslexia Disease Active Unive rs ity of [place] [facility] [place] Allergies, Adverse Reactions, Alerts Allergy Allergy Status Severity Reaction(s) Onset Inactive Treating Comm ents Source Name Type Date Date Clinician CODEINE DRUG Active Hives Univers INGREDI 4-03 ity of 00:00: [place] 00 Medical Branch Codeine Propensi Active Hives Univers ty to 4-03 ity of adverse 00:00: [place] reaction 00 Medical s Branch Social History Social Habit Start Date Stop Date Quantity Comments Source History of 2017-02-15 Cigarette Smoker Universi ty of tobacco use 00:00:00 [facility] Sex Assigned At Universit y of [facility] Tobacco use and 2019-05-02 2019-05-02 Never used Universit y of exposure 00:00:00 00:00:00 [facility] Alcohol intake 2019-05-02 2019-05-02 Current University of 00:00:00 00:00:00 non-drinker of [facility] alcohol ([facility]) Branch Smoking Status Start Date Stop Date Source Current some day smoker 2019-05-02 00:00:00 [facility] Medications Ordered Filled Start Stop Current Ordering Indication Dosage Frequency Signature Comments Components Source Medication Medication Date Date Medication? Clinician (SIG) Name Name leigh ann 2020-0 Yes [id number] 1{tbl} Take 1 Univers ne 0.35 mg 3-18 tablet by ity of tablet 00:00: mouth 00 daily. [facility] norezaheerndro 2020-0 Yes [id number] 1{tbl} Take 1 Univers ne 0.35 mg 3-18 tablet by ity of tablet 00:00: mouth [place] 00 daily. [facility] norethindro 2020-0 Yes [id number] 1{tbl} Take 1 Univers ne 0.35 mg 3-18 tablet by ity of tablet 00:00: mouth [place] 00 daily. [facility] calndro 2020-0 Yes [id number] 1{tbl} Take 1 Univers ne 0.35 mg 3-18 tablet by ity of tablet 00:00: mouth [place] 00 daily. Medical [place] No known No Univers medications [facility] Immunizations Ordered Immunization Filled Immunization Date Status Commen ts Source Name Name HPV9 2019-02-15 Completed University of 00:00:00 [facility] 2019-02-15 Completed University of 00:00:00 [facility] 2019-02-15 Completed University of 00:00:00 [facility] 2019-02-15 Completed University of 00:00:00 [facility] 2019-02-15 Completed University of 00:00:00 [facility] HEPATITIS A 2013-09-26 Completed University of 00:00:00 [facility] HEPATITIS A 2013-09-26 Completed University of 00:00:00 [facility] HEPATITIS A 2013-09-26 Completed University of 00:00:00 [facility] HEPATITIS A 2013-09-26 Completed University of 00:00:00 [facility] HEPATITIS A 2013-09-26 Completed University of 00:00:00 [facility] Meningococcal 2011-09-29 Completed University of Polysaccharide 00:00:00 [facility] genesis (groups A, C, Y and Branc h W-135) conjugate vaccine (MCV4P) Tdap 2011-09-29 Completed University of 00:00:00 [facility] Varicella 2011-09-29 Completed University of (varivax)(chicken 00:00:00 [facility] [place] edical pox) Rice Meningococcal 2011-09-29 Completed University of Polysaccharide 00:00:00 [place] [facility] genesis (groups A, C, Y and Branc h W-135) conjugate vaccine (MCV4P) TDAP 2011-09-29 Completed University of 00:00:00 [facility] Varicella 2011-09-29 Completed University of (varivax)(chicken 00:00:00 [place] M edical pox) Branch Meningococcal 2011-09-29 Completed University of Polysaccharide 00:00:00 [facility] genesis (groups A, C, Y and Branc h W-135) conjugate vaccine (MCV4P) Tdap 2011-09-29 Completed University of 00:00:00 [facility] Varicella 2011-09-29 Completed University of (varivax)(chicken 00:00:00 [place] [facility]ical pox) Branch Meningococcal 2011-09-29 Completed University of Polysaccharide 00:00:00 [facility] genesis (groups A, C, Y and Branc h W-135) conjugate vaccine (MCV4P) Tdap 2011-09-29 Completed University of 00:00:00 [facility] Varicella 2011-09-29 Completed University of (varivax)(chicken 00:00:00 [place] [facility] pox) Branch Meningococcal 2011-09-29 Completed University of Polysaccharide 00:00:00 [facility] genesis (groups A, C, Y and Branc h W-135) conjugate vaccine (MCV4P) Tdap 2011-09-29 Completed University of 00:00:00 [facility] Varicella 2011-09-29 Completed University of (varivax)(chicken 00:00:00 [place] [facility] pox) Branch HEPATITIS A 2005-05-13 Completed University of 00:00:00 [facility] HEPATITIS A 2005-05-13 Completed University of 00:00:00 [facility] HEPATITIS A 2005-05-13 Completed University of 00:00:00 [facility] HEPATITIS A 2005-05-13 Completed University of 00:00:00 [facility] HEPATITIS A 2005-05-13 Completed University of 00:00:00 [facility] MMR 2003-10-16 Completed University of 00:00:00 [facility] Polio (IPV/OPV) 2003-10-16 Completed Universit y of 00:00:00 [facility] DTAP 2003-10-16 Completed University of 00:00:00 [facility] MMR 2003-10-16 Completed University of 00:00:00 [facility] Polio (IPV/OPV) 2003-10-16 Completed Universit y of 00:00:00 [facility] DTAP 2003-10-16 Completed University of 00:00:00 [facility] MMR 2003-10-16 Completed University of 00:00:00 [facility] Polio (IPV/OPV) 2003-10-16 Completed Universit y of 00:00:00 [facility] DTAP 2003-10-16 Completed University of 00:00:00 [facility] MMR 2003-10-16 Completed University of 00:00:00 [facility] Polio (IPV/OPV) 2003-10-16 Completed Universit y of 00:00:00 [facility] DTAP 2003-10-16 Completed University of 00:00:00 [facility] MMR 2003-10-16 Completed University of 00:00:00 [facility] Polio (IPV/OPV) 2003-10-16 Completed Universit y of 00:00:00 [facility] DTAP 2003-10-16 Completed University of 00:00:00 [facility] MMR 2003-02-27 Completed University of 00:00:00 [facility] Varicella 2003-02-27 Completed University of (varivax)(chicken 00:00:00 [place] [facility]ical pox) Branch DTAP 2003-02-27 Completed University of 00:00:00 [facility] HIB 4 Dose Schedule 2003-02-27 Completed Unive rsity of 00:00:00 [facility] MMR 2003-02-27 Completed University of 00:00:00 [facility] Varicella 2003-02-27 Completed University of (varivax)(chicken 00:00:00 [place] M edical pox) Branch DTAP 2003-02-27 Completed University of 00:00:00 [facility] HIB 4 Dose Schedule 2003-02-27 Completed Unive rsity of 00:00:00 [facility] MMR 2003-02-27 Completed University of 00:00:00 [facility] Varicella 2003-02-27 Completed University of (varivax)(chicken 00:00:00 [place] M edical pox) Branch DTAP 2003-02-27 Completed University of 00:00:00 [facility] HIB 4 Dose Schedule 2003-02-27 Completed Unive rsity of 00:00:00 [facility] MMR 2003-02-27 Completed University of 00:00:00 [facility] Varicella 2003-02-27 Completed University of (varivax)(chicken 00:00:00 [place] M [facility]ical pox) Branch DTAP 2003-02-27 Completed University of 00:00:00 [facility] HIB 4 Dose Schedule 2003-02-27 Completed Unive rsity of 00:00:00 [facility] MMR 2003-02-27 Completed University of 00:00:00 [facility] Varicella 2003-02-27 Completed University of (varivax)(chicken 00:00:00 [place] M [facility]ical pox) Branch DTAP 2003-02-27 Completed University of 00:00:00 [facility] HIB 4 Dose Schedule 2003-02-27 Completed Unive rsity of 00:00:00 [facility] HIB 4 Dose Schedule 2000-06-15 Completed Unive rsity of 00:00:00 [facility] HIB 4 Dose Schedule 2000-06-15 Completed Unive rsity of 00:00:00 [facility] HIB 4 Dose Schedule 2000-06-15 Completed Unive rsity of 00:00:00 [facility] HIB 4 Dose Schedule 2000-06-15 Completed Unive rsity of 00:00:00 [facility] HIB 4 Dose Schedule 2000-06-15 Completed Unive rsity of 00:00:00 [facility] Polio (IPV/OPV) 2000-03-16 Completed Universit y of 00:00:00 [facility] DTAP 2000-03-16 Completed University of 00:00:00 [facility] HIB 4 Dose Schedule 2000-03-16 Completed Unive rsity of 00:00:00 [facility] Hep B, Adol or Pedi 2000-03-16 Completed Unive rsity of Dosage 00:00:00 [facility] Polio (IPV/OPV) 2000-03-16 Completed Universit y of 00:00:00 [facility] DTAP 2000-03-16 Completed University of 00:00:00 [facility] HIB 4 Dose Schedule 2000-03-16 Completed Unive rsity of 00:00:00 [facility] Hep B, Adol or Pedi 2000-03-16 Completed Unive rsity of Dosage 00:00:00 [facility] Polio (IPV/OPV) 2000-03-16 Completed Universit y of 00:00:00 [facility] DTAP 2000-03-16 Completed University of 00:00:00 [facility] HIB 4 Dose Schedule 2000-03-16 Completed Unive rsity of 00:00:00 [facility] Hep B, Adol or Pedi 2000-03-16 Completed Unive rsity of Dosage 00:00:00 [facility] Polio (IPV/OPV) 2000-03-16 Completed Universit y of 00:00:00 [facility] DTAP 2000-03-16 Completed University of 00:00:00 [facility] HIB 4 Dose Schedule 2000-03-16 Completed Unive rsity of 00:00:00 [facility] Hep B, Adol or Pedi 2000-03-16 Completed Unive rsity of Dosage 00:00:00 [facility] Polio (IPV/OPV) 2000-03-16 Completed Universit y of 00:00:00 [facility] DTAP 2000-03-16 Completed University of 00:00:00 [facility] HIB 4 Dose Schedule 2000-03-16 Completed Unive rsity of 00:00:00 [facility] Hep B, Adol or Pedi 2000-03-16 Completed Unive rsity of Dosage 00:00:00 [facility] Polio (IPV/OPV) 2000-01-11 Completed Universit y of 00:00:00 [facility] DTAP 2000-01-11 Completed University of 00:00:00 [facility] Polio (IPV/OPV) 2000-01-11 Completed Universit y of 00:00:00 [facility] DTAP 2000-01-11 Completed University of 00:00:00 [facility] Polio (IPV/OPV) 2000-01-11 Completed Universit y of 00:00:00 [facility] DTAP 2000-01-11 Completed University of 00:00:00 [facility] Polio (IPV/OPV) 2000-01-11 Completed Universit y of 00:00:00 [facility] DTAP 2000-01-11 Completed University of 00:00:00 [facility] Polio (IPV/OPV) 2000-01-11 Completed Universit y of 00:00:00 [facility] DTAP 2000-01-11 Completed University of 00:00:00 [facility] Polio (IPV/OPV) 1999 Completed Universit y of 00:00:00 [facility] DTAP 1999 Completed University of 00:00:00 [facility] HIB 4 Dose Schedule 1999 Completed Unive rsity of 00:00:00 [place] [facility] Hep B, Adol or Pedi 1999 Completed Unive rsity of Dosage 00:00:00 [facility] Polio (IPV/OPV) 1999 Completed Universit y of 00:00:00 [facility] DTAP 1999 Completed University of 00:00:00 [facility] HIB 4 Dose Schedule 1999 Completed Unive rsity of 00:00:00 [place] [facility] Hep B, Adol or Pedi 1999 Completed Unive rsity of Dosage 00:00:00 [facility] DTAP 1999 Completed University of 00:00:00 [facility] Polio (IPV/OPV) 1999 Completed Universit y of 00:00:00 [facility] HIB 4 Dose Schedule 1999 Completed Unive rsity of 00:00:00 [place] [facility] Hep B, Adol or Pedi 1999 Completed Unive rsity of Dosage 00:00:00 [facility] Polio (IPV/OPV) 1999 Completed Universit y of 00:00:00 [facility] DTAP 1999 Completed University of 00:00:00 [facility] HIB 4 Dose Schedule 1999 Completed Unive rsity of 00:00:00 [place] [facility] Hep B, Adol or Pedi 1999 Completed Unive rsity of Dosage 00:00:00 [facility] Polio (IPV/OPV) 1999 Completed Universit y of 00:00:00 [facility] DTAP 1999 Completed University of 00:00:00 [facility] HIB 4 Dose Schedule 1999 Completed Unive rsity of 00:00:00 [place] [facility] Hep B, Adol or Pedi 1999 Completed Unive rsity of Dosage 00:00:00 [place] [facility] Hep B, Adol or Pedi 1999 Completed Unive rsity of Dosage 00:00:00 [place] [facility] Hep B, Adol or Pedi 1999 Completed Unive rsity of Dosage 00:00:00 [facility] Hep B, Adol or Pedi 1999 Completed Unive rsity of Dosage 00:00:00 [place] [facility] Hep B, Adol or Pedi 1999 Completed Unive rsity of Dosage 00:00:00 [facility] Hep B, Adol or Pedi 1999 Completed Unive rsity of Dosage 00:00:00 [facility] Vital Signs Vital Name Observation Time Observation Value Comments Source Systolic blood 2019-05-02 19:30:00 143 mm[Hg] Univer sity of pressure [facility] Diastolic blood 2019-05-02 19:30:00 83 mm[Hg] Unive rsity of pressure [facility] Heart rate 2019-05-02 19:30:00 69 /min Universi ty of [facility] Body temperature 2019-05-02 19:29:00 36.11 Mandy Univ ersity of [facility] Respiratory rate 2019-05-02 19:29:00 16 /min Univ ersity of [facility] Body height 2019-05-02 19:29:00 160 cm Universi ty of [place] [facility] Body weight 2019-05-02 19:29:00 114.448 kg Universi ty of [place] [facility] BMI 2019-05-02 19:29:00 44.70 kg/m2 Universi ty of [facility] Systolic blood 2019-05-02 19:30:00 143 mm[Hg] Univer sity of pressure [facility] Diastolic blood 2019-05-02 19:30:00 83 mm[Hg] Unive rsity of pressure [facility] Heart rate 2019-05-02 19:30:00 69 /min Universi ty of [place] [facility] Body temperature 2019-05-02 19:29:00 36.11 Mandy Univ ersity of [place] [facility] Respiratory rate 2019-05-02 19:29:00 16 /min Univ ersity of [facility] Body height 2019-05-02 19:29:00 160 cm Universi ty of [place] [facility] Body weight 2019-05-02 19:29:00 114.448 kg Universi ty of [place] [facility] BMI 2019-05-02 19:29:00 44.70 kg/m2 Universi ty of [facility] Procedures Procedure Date / Time Performed Performing Clinician Sour e POCT TEST 2019-05-02 20:07:00 Jessica Jc [facility] DISCLOSURE AND 2019-05-02 05:01:00 Doctor Unassigned, No [facility] CONSENT, MEDICAL AND Name Medical Bra [facility] SURGICAL PROCEDURES Encounters Start End Encounter Admission Attending Care Care Encounter Source Date/Time Date/Time Type Type Clinicians Facility Department ID 2019-09-17 2019-09-[address] [facility] [id number] 00:00:00 00:00:00 (Out) Rupinder Hester [employer] HELPER [id number] [facility] [id number] MATERNAL [id number] & CHILD 107 [facility] 2019-09-17 2019-09-[address] [facility] [id number] Univers 00:00:00 00:00:00 (Out) Rupinder Hester [employer] HELPER [id number] [facility] [id number] Giorgi as MATERNAL [id number] Med ical & CHILD 107 [facility] 2019-07-25 2019-07-25 Outpatient R AKINSIPE, [facility] [id number] Univers 13:15:00 13:15:00 RUPINDER [id number] ity o [facility] 2019-07-25 2019-07-25 Outpatient R AKINSIPE, [facility] [id number] Univers 13:15:00 13:15:00 RUPINDER ity o f [facility] 2019-07-25 2019-07-25 Outpatient R AKINSIPE, [facility] [id number] Univers 13:15:00 13:15:00 RUPINDER ity o f [facility] 2019-05-02 2019-05-02 Office Babita IAPRISCILA [id number] 14:21:33 15:07:33 Visit Jessica Soto [employer] [id number] [facility] [id number] MATERNAL [id number] & CHILD 107 [facility] 2019-05-02 2019-05-02 Office Babita IAPRISCILA [id number] Univers 14:21:33 15:07:33 Visit Jessica N [employer] [id number] it y of REGIONAL [id number] Giorgi as MATERNAL [id number] [facility] & [address] 2019-05-02 2019-05-02 Outpatient R BABITA [facility] [id number] Univers 14:45:00 14:45:00 JESSICA [id number] yasemin [facility] 2019-05-02 2019-05-02 Outpatient R BABITA [facility] [id number] Univers 14:45:00 14:45:00 JESSICA [facility] 2019-05-02 2019-05-02 Orders Doctor JARET [id number] 00:00:00 00:00:00 Only Unassigned, VALARIE [id number] [facility] [id number] [facility] 2019-05-02 2019-05-02 Orders Doctor JARET [id number] Univers 00:00:00 00:00:00 Only Unassigned, VALARIE [id number] ity of [facility] [id number] Giorgi as [id number] [address] 2019-03-03 2019-03-03 Telephone [facility] [id number] Univers 00:00:00 00:00:00 Jessica Soto [employer] HELPER [id number] it y of REGIONAL [id number] Giorgi as MATERNAL [id number] [facility] & CHILD [address] [place] [address] Results Test Description Test Time Test Comments Results Result Comments Source POCT TEST 2019-05-02 20:07:00 Test Item Value Reference Range Interpretation Comme nts POCT PREG (test code = 1605) Negative On board controls acceptable with C Line (test code = 3574) Yes POCT PREG LOT # (test code = 3575) POCT PREG TEST DATE (test code = 3576) [facility] [place] [id number] 20:07:00 Test Item Value Reference Range Interpretation Comments POCT PREG (test code = 1605) Negative On board controls acceptable with C Yes Line (test code = 3574) POCT PREG LOT # (test code = 3575) POCT PREG TEST DATE (test code = 3576) [facility]
[2021-10-01] MEDS ORDERED: CYCLOBENZAPRINE 10 MG TAB ONE (10:24)
[2021-10-01] MEDS ORDERED: KETOROLAC 30 MG/ML INJ ONE (10:25)
--- NOTE | 2021-10-01 10:44 | RAD REPORT ---
EXAM DESCRIPTION: RAD - Chest Single View - 10/01/2021 10:26 am CLINICAL HISTORY: PAIN COMPARISON: CHEST PA AND LAT 2 VIEW dated 11/05/2013 FINDINGS: Lines: None. Lungs: No evidence of edema or pneumonia. Pleural: No significant pleural effusions or pneumothorax. Cardiac: The heart size is within normal limits. Bones: No acute fractures. Other: IMPRESSION: No acute cardiopulmonary disease.
--- NOTE | 2021-10-01 10:45 | RAD REPORT ---
EXAM DESCRIPTION: RAD - Ribs Left - 10/01/2021 10:26 am CLINICAL HISTORY: L ribs COMPARISON: Chest Single View dated 10/01/2021 FINDINGS/IMPRESSION: No displaced left-sided rib fractures are identified. Nondisplaced or minimally displaced rib fractures may not be apparent on initial radiography until healing begins.
--- NOTE | 2021-10-01 10:45 | RAD REPORT ---
EXAM DESCRIPTION: RAD - Knee Left 3 View - 10/01/2021 10:25 am CLINICAL HISTORY: PAIN COMPARISON: No comparisons FINDINGS: No acute fracture. No malalignment. No significant focal degenerative changes. IMPRESSION: No acute osseous abnormality involving the left knee.
--- NOTE | 2021-10-01 11:04 | ER ---
Nurse's Notes [facility] Name: Melisa Trammell Age: 21 yrs Sex: Female : 2000 Arrival Date: 10/01/2021 Time: 09:27 Bed 13 Private MD: Diagnosis: Contusion of left knee;Fall (on) (from) other stairs and steps, initial encounter Presentation: 10/01 09:55 Chief complaint: Patient states: she has been having pain from her left foot up to her ap3 left arm for approx a month. patient states she fell a few days ago at work, and since she fell, the pain has been worse and more constant. Coronavirus screen: At this time, the client does not indicate any symptoms associated with coronavirus-19. Ebola Screen: No symptoms or risks identified at this time. Initial Sepsis Screen: Does the patient meet any 2 criteria? No. Patient's initial sepsis screen is negative. Does the patient have a suspected source of infection? No. Patient's initial sepsis screen is negative. Risk Assessment: Do you want to hurt yourself or someone else? Patient reports no desire to harm self or others. Onset of symptoms was August 2021. 09:55 Method Of Arrival: Ambulatory ap3 09:55 Acuity: BILLIE 4 ap3 Triage Assessment: 09:58 General: Appears in no apparent distress. uncomfortable, Behavior is calm, cooperative. ap3 Pain: Complains of pain in left arm and left leg. Neuro: Level of Consciousness is awake, alert, obeys commands, Oriented to person, place, time, situation, Appropriate for age. Cardiovascular: Patient's skin is warm and dry. Respiratory: Airway is patent Respiratory effort is even, unlabored. 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 - Social history:: Smoking status: Patient reports the use of cigarette tobacco products, smokes one-half pack cigarettes per day, Patient uses street drugs, marijuana. Screenin:57 Abuse screen: Denies threats or abuse. Nutritional screening: No deficits noted. ap3 Tuberculosis screening: No symptoms or risk factors identified. Fall Risk Fall in past 12 months (25 points). Secondary diagnosis (15 points) impaired mobility, No IV (0 pts). Ambulatory Aid- None/Bed Rest/Nurse Assist (0 pts). Gait- Weak (10 pts.). Mental Status- Oriented to own ability (0 pts). Total Hwang Fall Scale indicates High Risk Score (45 or more points). Fall prevention measures have been instituted. Family Present and informed to notify staff if the need to leave the bedside As available patient and family educated on Fall Prevention Program and Strategies. Assessment: 10:19 General: Appears uncomfortable, obese, well groomed, well developed, Behavior is calm, jh5 cooperative, appropriate for age. Vital Signs: 09:55 BP 120 / 70; Pulse 84; Resp 17; Temp 97.8; Pulse Ox 98% ; Weight 104.33 kg; Height 5 ap3 ft. 3 in. (160.02 cm); Pain 8/10; 09:55 Body Mass Index 40.74 (104.33 kg, 160.02 cm) ap3 ED Course: 09:27 Patient arrived in ED. rg4 09:27 Mariama Pozo FNP [facility] jh7 09:27 Davidson Camacho MD is Attending Physician. jh7 09:56 Triage completed. ap3 09:58 Arm band placed on right wrist. ap3 10:19 Suzan Jernigan, RN is Primary Nurse. jh5 10:19 Patient has correct armband on for positive identification. jh5 10:19 No provider procedures requiring assistance completed. jh5 10:26 Knee Left 3 View XRAY In Process Unspecified. EDMS 10:26 Chest Single View XRAY In Process Unspecified. EDMS 10:26 Ribs Left XRAY In Process Unspecified. EDMS 11:37 IV discontinued. jh5 Administered Medications: 10:48 Drug: Ketorolac 60 mg Route: IM; Site: right vastus lateralis; jh5 10:48 Drug: Flexeril (cyclobenzaprine) 10 mg Route: PO; 5 Medication: 10:21 VIS not applicable for this client. 5 Outcome: 11:03 Discharge ordered by . 7 11:37 Discharged to home 5 11:37 Condition: good 11:37 Discharge instructions given to patient. 11:37 Patient left the ED. jh5 Signatures: Dispatcher [employer] Ana Lilia Alfaro4 Carie Michelle RN RN ap3 Suzan Jernigan RN RN jh5 Mariama Pozo, BUSINESS DIRECTOR BUSINESS DIRECTOR jh7 Corrections: (The following items were deleted from the chart) 10:21 10:20 VIS not applicable for this client. [email or web address]
--- NOTE | 2021-10-01 11:04 | EDPHYS ---
Physician Documentation [facility] Name: Melisa Trammell Age: 21 yrs Sex: Female : 2000 Arrival Date: 10/01/2021 Time: 09:27 Bed 13 Private MD: ED Physician Davidson Camacho HPI: 10/01 10:00 This 21 yrs old Female presents to ER via Ambulatory with complaints of Pain jh7 From Neck To Leg. 10:00 Onset: The symptoms/episode began/occurred 2 day(s) ago. Patient states that she jh7 slipped and fell at work on Tuesday while going up the stairs. States that her left knee took most of the impact but also reports that she is sore on her left chest/ribs. Denies LOC or head injury.. 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 - Social history:: Smoking status: Patient reports the use of cigarette tobacco products, smokes one-half pack cigarettes per day, Patient uses street drugs, marijuana. ROS: 10:00 Constitutional: Negative for fever, chills, and weight loss, Eyes: Negative for injury, jh7 pain, redness, and discharge, Neck: Negative for injury, pain, and swelling, Cardiovascular: Negative for chest pain, palpitations, and edema, Respiratory: Negative for shortness of breath, cough, wheezing, and pleuritic chest pain, Abdomen/GI: Negative for abdominal pain, nausea, vomiting, diarrhea, and constipation, Back: Negative for injury and pain, Skin: Negative for injury, rash, and discoloration, Neuro: Negative for headache, weakness, numbness, tingling, and seizure. 10:00 MS/extremity: Positive for contusion, pain, Negative for decreased range of motion, laceration. 10:00 All other systems are negative. Exam: 10:00 Constitutional: This is a well developed, well nourished patient who is awake, alert, jh7 and in no acute distress. Eyes: Pupils equal round and reactive to light, extra-ocular motions intact. Lids and lashes normal. Conjunctiva and sclera are non-icteric and not injected. Cornea within normal limits. Periorbital areas with no swelling, redness, or edema. Neck: Trachea midline, no thyromegaly or masses palpated, and no cervical lymphadenopathy. Supple, full range of motion without nuchal rigidity, or vertebral point tenderness. No Meningismus. Cardiovascular: Regular rate and rhythm with a normal S1 and S2. No gallops, murmurs, or rubs. Normal PMI, no JVD. No pulse deficits. Respiratory: Lungs have equal breath sounds bilaterally, clear to auscultation and percussion. No rales, rhonchi or wheezes noted. No increased work of breathing, no retractions or nasal flaring. Abdomen/GI: Soft, non-tender, with normal bowel sounds. No distension or tympany. No guarding or rebound. No evidence of tenderness throughout. Back: No spinal tenderness. No costovertebral tenderness. Full range of motion. Skin: Warm, dry with normal turgor. Normal color with no rashes, no lesions, and no evidence of cellulitis. Neuro: Awake and alert, GCS 15, oriented to person, place, time, and situation. Motor strength 5/5 in all extremities. Sensory grossly intact. Normal gait. 10:00 Chest/axilla: Inspection: normal, Palpation: is normal. 10:00 Musculoskeletal/extremity: ROM: full active range of motion, Circulation is intact in all extremities. the left leg L knee: NVI, mild swelling and bruising over the anterior knee. Vital Signs: 09:55 BP 120 / 70; Pulse 84; Resp 17; Temp 97.8; Pulse Ox 98% ; Weight 104.33 kg; Height 5 ap3 ft. 3 in. (160.02 cm); Pain 8/10; 09:55 Body Mass Index 40.74 (104.33 kg, 160.02 cm) ap3 MDM: 10:00 Patient medically screened. [facility] 11:05 Differential diagnosis: Left knee contusion, closed fracture, knee sprain, rib jh7 fracture. Data reviewed: vital signs, nurses notes, radiologic studies, plain films. Data interpreted: Pulse oximetry: is 98 %. Counseling: I had a detailed discussion with the patient and/or guardian regarding: the historical points, exam findings, and any diagnostic results supporting the discharge/admit diagnosis, to return to the emergency department if symptoms worsen or persist or if there are any questions or concerns that arise at home. 10/01 09:54 Order name: Knee Left 3 View XRAY; Complete Time: 11:02 [facility] 10/01 09:54 Order name: Chest Single View XRAY; Complete Time: 11:02 [facility] 10/01 09:54 Order name: Ribs Left XRAY; Complete Time: 11:02 [facility] 10/01 11:06 Order name: Rafy Wrap; Complete Time: 11:37 [facility] Administered Medications: 10:48 Drug: Ketorolac 60 mg Route: IM; Site: right vastus lateralis; [facility] 10:48 Drug: Flexeril (cyclobenzaprine) 10 mg Route: PO; [facility] Disposition Summary: 10/01/21 11:03 Discharge Ordered Location: Home [facility] Problem: new [facility] Symptoms: have improved [facility] Condition: Stable [facility] Diagnosis - Contusion of left knee [facility] - Fall (on) (from) other stairs and steps, initial encounter [facility] Followup: [facility] - With: Private Physician - When: 2 - 3 days - Reason: Recheck today's complaints Discharge Instructions: - Discharge Summary Sheet [facility] - Fall Prevention in the Home, Adult [facility] - Acute Knee Pain, Adult [facility] Forms: - Work release form eb - Medication Reconciliation Form [facility] - Thank You Letter [facility] Prescriptions: - Naprosyn 500 mg Oral Tablet - take 1 tablet by ORAL route 2 times per day take with food; 30 tablet; Refills: [facility] 0, Product Selection Permitted - Zanaflex 4 mg Oral Tablet - take 1 tablet by ORAL route every 8 hours As needed; 20 tablet; Refills: 0, jh7 Product Selection Permitted 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
[2021-10-01 11:42] VITALS: BP 120/70; TEMP 97.8; O2SAT 98
== END 2021-10-01 11:37 | disposition home or self-care (01) ==
LOC: ER 09:25
DX: S80.02XA Contusion of left knee, initial encounter (principal); W10.8XXA Fall (on) (from) other stairs and steps, initial encounter; F17.210 Nicotine dependence, cigarettes, uncomplicated; Z88.5 Allergy status to narcotic agent
CPT/HCPCS: 71045; 96372; 99283

== ENCOUNTER 2021-11-05 17:45 | Emergency (ER) | payer SELFPAY ==
--- OUTSIDE RECORDS SUMMARY | 2021-11-05 17:49 | XMS REPORT | Continuity of Care Document ---
:2000 Author Organization [facility] t Address [address] [place] [address] Care Team Providers Name Role Phone Rupinder Garza Attending Clinician [phone] RUPINDER LUQUE Attending Clinician Unavailable Jessica Serra Attending Clinician JESSICA JC Attending Clinician Unavailable Doctor Unassigned, [place] Attending Clinician Unavailable Payers Payer Name Policy Type Policy Number Effective Date Expiration Date S ource Problems Condition Condition Condition Status Onset Resolution Last Treating Co mments Source Name Details Category Date Date Treatment Clinician Date Encounter Encounter Disease Active Uni vers for for 3-18 ity of initial initial 00:00: [place] prescripti prescripti 00 Me dical on of on of Branch contracept contracept rambo pills rambo pills BMI BMI Disease Active Univers 40.0-44.9, 40.0-44.9, 1-02 it y of adult adult 00:00: [address] Branch Elevated Elevated Disease Active Unive rs BP without BP without 02-15 it y of diagnosis diagnosis 00:00: s Medical hypertensi hypertensi Br anch on on Nexplanon Nexplanon Disease Active Uni vers in place in place -11 ity of 00:00: [place] [address] Medical Branch Generalize Generalize Disease Active Overview : Univers d anxiety d anxiety 3-10 Tried ity of disorder disorder 00:00: Paxil and Giorgi as 00 she had Medical adverse Branch effects - depressio n/lack of motivatio n. Abnormal Abnormal Disease Active 2013-02 Overview: Un indira liver liver 2- Patient ity of enzymes enzymes 00:00: has had [place] [address] workup Medical for Branch abdominal pain in the past with [facility] gastroent erology. Workup revealed mild fatty liver [...] Patient ity of cycle cycle 00:00: has secondary Medical amenorrhe Branch a and has on average [address] Hancock is managing this issue - began Provera 12/2014 Acanthosis Acanthosis Disease Active U nivers nigricans nigricans 09-26 ity of 00:00: [place] 00 Medical Branch Dyslexia Dyslexia Disease Active Unive rs ity of [facility] Allergies, Adverse Reactions, Alerts Allergy Allergy Status [...] Smoker Universi ty of tobacco use 00:00:00 [facility] Sex Assigned At Universit y of [facility] Tobacco use and 2019-05-02 2019-05-02 Never used Universit y of exposure 00:00:00 00:00:00 [facility] Alcohol intake 2019-05-02 2019-05-02 Current University of 00:00:00 00:00:00 non-drinker of [facility] alcohol ([facility] Branch Smoking Status Start Date Stop Date Source Current some day smoker 2019-05-02 00:00:00 [facility] Medications Ordered Filled Start Stop Current Ordering Indication Dosage Frequency Signature Comments Components Source Medication Medication Date Date Medication? Clinician (SIG) Name Name leigh ann 0 Yes [id number] 1{tbl} Take 1 Univers ne 0.35 mg 3-18 tablet by ity of tablet 00:00: mouth [place] 00 daily. [facility] Branch rolandoro 2019-0 Yes [id number] 1{tbl} Take 1 Univers ne 0.35 mg 3-18 tablet by ity of tablet 00:00: mouth [place] 00 daily. [facility] Branch norezaheerndro 0 Yes [id number] 1{tbl} Take 1 Univers ne 0.35 mg 3-18 tablet by ity of tablet 00:00: mouth [place] 00 daily. [facility] Branch rolandoro 0 Yes [id number] 1{tbl} Take 1 Univers ne 0.35 mg 3-18 tablet by ity of tablet 00:00: mouth [place] 00 daily. Medical Branch No known No Univers medications [facility] Immunizations Ordered Immunization Filled Immunization Date Status Commen ts Source Name Name HPV9 2019-02-15 Completed University of 00:00:00 [facility] HPV9 2019-02-15 Completed University of 00:00:00 [facility] HPV9 2019-02-15 Completed University of 00:00:00 [facility] HPV9 2019-02-15 Completed University of 00:00:00 [facility] HPV9 2019-02-15 Completed University of 00:00:00 [facility] HEPATITIS A 2013-09-26 Completed University of 00:00:00 [facility] HEPATITIS A 2013-09-26 Completed University of 00:00:00 [facility] HEPATITIS A 2013-09-26 Completed University of 00:00:00 [facility] HEPATITIS A 2013-09-26 Completed University of 00:00:00 [facility] HEPATITIS A 2013-09-26 Completed University of 00:00:00 [facility] Meningococcal 2011-09-29 Completed University of Polysaccharide 00:00:00 [facility] genesis (groups A, C, Y and Branc h W-135) conjugate vaccine (MCV4P) Tdap 2011-09-29 Completed University of 00:00:00 [facility] Varicella 2011-09-29 Completed University of (varivax)(chicken 00:00:00 [place] M edical pox) Branch Meningococcal 2011-09-29 Completed University of Polysaccharide 00:00:00 [place] Medi genesis (groups A, C, Y and Branc h W-135) conjugate vaccine (MCV4P) TDAP 2011-09-29 Completed University of 00:00:00 [facility] Varicella 2011-09-29 Completed University of (varivax)(chicken 00:00:00 [place] M edical pox) Branch Meningococcal 2011-09-29 Completed University of Polysaccharide 00:00:00 [place] Medi genesis (groups A, C, Y and Branc h W-135) conjugate vaccine (MCV4P) Tdap 2011-09-29 Completed University of 00:00:00 [facility] Varicella 2011-09-29 Completed University of (varivax)(chicken 00:00:00 [place] M edical pox) Branch Meningococcal 2011-09-29 Completed University of Polysaccharide 00:00:00 [place] Medi genesis (groups A, C, Y and Branc h W-135) conjugate vaccine (MCV4P) Tdap 2011-09-29 Completed University of 00:00:00 [facility] Varicella 2011-09-29 Completed University of (varivax)(chicken 00:00:00 [place] M edical pox) Branch Meningococcal 2011-09-29 Completed University of Polysaccharide 00:00:00 [place] Medi genesis (groups A, C, Y and Branc h W-135) conjugate vaccine (MCV4P) Tdap 2011-09-29 Completed University of 00:00:00 [facility] Varicella 2011-09-29 Completed University of (varivax)(chicken 00:00:00 [place] M edical pox) Branch HEPATITIS A 2005-05-13 Completed University of 00:00:00 [facility] HEPATITIS A 2005-05-13 Completed University of 00:00:00 [facility] HEPATITIS A 2005-05-13 Completed University of 00:00:00 [facility] HEPATITIS A 2005-05-13 Completed University of 00:00:00 [facility] HEPATITIS A 2005-05-13 Completed University of 00:00:00 [facility] MMR 2003-10-16 Completed University of 00:00:00 [facility] Polio (IPV/OPV) 2003-10-16 Completed Universit y of 00:00:00 [facility] DTAP 2003-10-16 Completed University of 00:00:00 [facility] MMR 2003-10-16 Completed University of 00:00:00 [facility] Polio (IPV/OPV) 2003-10-16 Completed Universit y of 00:00:00 [facility] DTAP 2003-10-16 Completed University of 00:00:00 [facility] MMR 2003-10-16 Completed University of 00:00:00 [facility] Polio (IPV/OPV) 2003-10-16 Completed Universit y of 00:00:00 [facility] DTAP 2003-10-16 Completed University of 00:00:00 [facility] MMR 2003-10-16 Completed University of 00:00:00 [facility] Polio (IPV/OPV) 2003-10-16 Completed Universit y of 00:00:00 [facility] DTAP 2003-10-16 Completed University of 00:00:00 [facility] MMR 2003-10-16 Completed University of 00:00:00 [facility] Polio (IPV/OPV) 2003-10-16 Completed Universit y of 00:00:00 [facility] DTAP 2003-10-16 Completed University of 00:00:00 [facility] MMR 2003-02-27 Completed University of 00:00:00 [facility] Varicella 2003-02-27 Completed University of (varivax)(chicken 00:00:00 [place] M [facility]ical pox) Branch DTAP 2003-02-27 Completed University of 00:00:00 [facility] HIB 4 Dose Schedule 2003-02-27 Completed Unive rsity of 00:00:00 [facility] MMR 2003-02-27 Completed University of 00:00:00 [facility] Varicella 2003-02-27 Completed University of (varivax)(chicken 00:00:00 [place] M edical pox) Branch DTAP 2003-02-27 Completed University of 00:00:00 [facility] HIB 4 Dose Schedule 2003-02-27 Completed Unive rsity of 00:00:00 [facility] MMR 2003-02-27 Completed University of 00:00:00 [facility] Varicella 2003-02-27 Completed University of (varivax)(chicken 00:00:00 [place] M edical pox) Branch DTAP 2003-02-27 Completed University of 00:00:00 [facility] HIB 4 Dose Schedule 2003-02-27 Completed Unive rsity of 00:00:00 [facility] MMR 2003-02-27 Completed University of 00:00:00 [facility] Varicella 2003-02-27 Completed University of (varivax)(chicken 00:00:00 [place] M edical pox) Branch DTAP 2003-02-27 Completed University of 00:00:00 [facility] HIB 4 Dose Schedule 2003-02-27 Completed Unive rsity of 00:00:00 [facility] MMR 2003-02-27 Completed University of 00:00:00 [facility] Varicella 2003-02-27 Completed University of (varivax)(chicken 00:00:00 [place] M edical pox) Branch DTAP 2003-02-27 Completed University of 00:00:00 [facility] HIB 4 Dose Schedule 2003-02-27 Completed Unive rsity of 00:00:00 [facility] HIB 4 Dose Schedule 2000-06-15 Completed Unive rsity of 00:00:00 [facility] HIB 4 Dose Schedule 2000-06-15 Completed Unive rsity of 00:00:00 [facility] HIB 4 Dose Schedule 2000-06-15 Completed Unive rsity of 00:00:00 [facility] HIB 4 Dose Schedule 2000-06-15 Completed Unive rsity of 00:00:00 [facility] HIB 4 Dose Schedule 2000-06-15 Completed Unive rsity of 00:00:00 [facility] Polio (IPV/OPV) 2000-03-16 Completed Universit y of 00:00:00 [facility] DTAP 2000-03-16 Completed University of 00:00:00 [facility] HIB 4 Dose Schedule 2000-03-16 Completed Unive rsity of 00:00:00 [facility] Hep B, Adol or Pedi 2000-03-16 Completed Unive rsity of Dosage 00:00:00 [facility] Polio (IPV/OPV) 2000-03-16 Completed Universit y of 00:00:00 [facility] DTAP 2000-03-16 Completed University of 00:00:00 [facility] HIB 4 Dose Schedule 2000-03-16 Completed Unive rsity of 00:00:00 [facility] Hep B, Adol or Pedi 2000-03-16 Completed Unive rsity of Dosage 00:00:00 [facility] Polio (IPV/OPV) 2000-03-16 Completed Universit y of 00:00:00 [facility] [place] [facility] Branch DTAP 2000-03-16 Completed University of 00:00:00 [facility] HIB 4 Dose Schedule 2000-03-16 Completed Unive rsity of 00:00:00 [facility] [place] [facility] Branch Hep B, Adol or Pedi 2000-03-16 Completed Unive rsity of Dosage 00:00:00 [facility] Polio (IPV/OPV) 2000-03-16 Completed Universit y of 00:00:00 [facility] [place] [facility] Branch DTAP 2000-03-16 Completed University of 00:00:00 [facility] HIB 4 Dose Schedule 2000-03-16 Completed Unive rsity of 00:00:00 [facility] [place] [facility] Branch Hep B, Adol or Pedi 2000-03-16 Completed Unive rsity of Dosage 00:00:00 [facility] Polio (IPV/OPV) 2000-03-16 Completed Universit y of 00:00:00 [facility] DTAP 2000-03-16 Completed University of 00:00:00 [facility] HIB 4 Dose Schedule 2000-03-16 Completed Unive rsity of 00:00:00 [facility] [place] [facility] Branch Hep B, Adol or Pedi 2000-03-16 Completed Unive rsity of Dosage 00:00:00 [facility] Polio (IPV/OPV) 2000-01-11 Completed Universit y of 00:00:00 [facility] DTAP 2000-01-11 Completed University of 00:00:00 [facility] [place] [facility] Branch Polio (IPV/OPV) 2000-01-11 Completed Universit y of 00:00:00 [facility] DTAP 2000-01-11 Completed University of 00:00:00 [facility] [place] [facility] Branch Polio (IPV/OPV) 2000-01-11 Completed Universit y of 00:00:00 [facility] DTAP 2000-01-11 Completed University of 00:00:00 [facility] [place] [facility] Branch Polio (IPV/OPV) 2000-01-11 Completed Universit y of 00:00:00 [facility] [place] [facility] Branch DTAP 2000-01-11 Completed University of 00:00:00 [facility] [place] [facility] Branch Polio (IPV/OPV) 2000-01-11 Completed Universit y of 00:00:00 [facility] DTAP 2000-01-11 Completed University of 00:00:00 [facility] [place] [facility] Branch Polio (IPV/OPV) 1999 Completed Universit y of 00:00:00 [place] [facility] DTAP 1999 Completed University of 00:00:00 [place] [facility] HIB 4 Dose Schedule 1999 Completed Unive rsity of 00:00:00 [place] [facility] Hep B, Adol or Pedi 1999 Completed Unive rsity of Dosage 00:00:00 [facility] [place] [facility] Branch Polio (IPV/OPV) 1999 Completed Universit y of 00:00:00 [place] [facility] DTAP 1999 Completed University of 00:00:00 [facility] [place] [facility] Branch HIB 4 Dose Schedule 1999 Completed Unive rsity of 00:00:00 [place] [facility] Hep B, Adol or Pedi 1999 Completed Unive rsity of Dosage 00:00:00 [facility] [place] [facility] Branch DTAP 1999 Completed University of 00:00:00 [facility] Polio (IPV/OPV) 1999 Completed Universit y of 00:00:00 [place] [facility] HIB 4 Dose Schedule 1999 Completed Unive rsity of 00:00:00 [place] [facility] Hep B, Adol or Pedi 1999 Completed Unive rsity of Dosage 00:00:00 [facility] [place] [facility] Branch Polio (IPV/OPV) 1999 Completed Universit y of 00:00:00 [facility] [place] [facility] Branch DTAP 1999 Completed University of 00:00:00 [facility] [place] [facility] Branch HIB 4 Dose Schedule 1999 Completed Unive rsity of 00:00:00 [place] [facility] Hep B, Adol or Pedi 1999 Completed Unive rsity of Dosage 00:00:00 [facility] [place] [facility] Branch Polio (IPV/OPV) 1999 Completed Universit y of 00:00:00 [place] [facility] DTAP 1999 Completed University of 00:00:00 [place] [facility] HIB 4 Dose Schedule 1999 Completed Unive rsity of 00:00:00 [place] [facility] Hep B, Adol or Pedi 1999 Completed Unive rsity of Dosage 00:00:00 [place] [facility] Hep B, Adol or Pedi 1999 Completed Unive rsity of Dosage 00:00:00 [place] [facility] Hep B, Adol or Pedi 1999 Completed Unive rsity of Dosage 00:00:00 [facility] [place] [facility] Branch Hep B, Adol or Pedi 1999 Completed Unive rsity of Dosage 00:00:00 [place] [facility] Hep B, Adol or Pedi 1999 Completed Unive rsity of Dosage 00:00:00 [facility] [place] [facility] Branch Hep B, Adol or Pedi 1999 Completed Unive rsity of Dosage 00:00:00 [facility] Vital Signs Vital Name Observation Time Observation Value Comments Source Systolic blood 2019-05-02 19:30:00 143 mm[Hg] Univer sity of pressure [facility] Diastolic blood 2019-05-02 19:30:00 83 mm[Hg] Unive rsity of pressure [facility] Heart rate 2019-05-02 19:30:00 69 /min Universi ty of [facility] Body temperature 2019-05-02 19:29:00 36.11 Mandy Univ ersity of [facility] Respiratory rate 2019-05-02 19:29:00 16 /min Univ ersity of [facility] Body height 2019-05-02 19:29:00 160 cm Universi ty of [facility] Body weight 2019-05-02 19:29:00 114.448 kg Universi ty of [facility] BMI 2019-05-02 19:29:00 44.70 kg/m2 Universi ty of [facility] Systolic blood 2019-05-02 19:30:00 143 mm[Hg] Univer sity of pressure [facility] Diastolic blood 2019-05-02 19:30:00 83 mm[Hg] Unive rsity of pressure [facility] Heart rate 2019-05-02 19:30:00 69 /min Universi ty of [facility] Body temperature 2019-05-02 19:29:00 36.11 Mandy Univ ersity of [facility] [place] [facility] Branch Respiratory rate 2019-05-02 19:29:00 16 /min Univ ersity of [facility] Body height 2019-05-02 19:29:00 160 cm Universi ty of [place] [facility] Body weight 2019-05-02 19:29:00 114.448 kg Universi ty of [facility] BMI 2019-05-02 19:29:00 44.70 kg/m2 Universi ty [facility] Procedures Procedure Date / Time Performed Performing Clinician Sourc e POCT TEST 2019-05-02 20:07:00 Jessica Jc [facility] DISCLOSURE AND 2019-05-02 05:01:00 Doctor Unassigned, [facility] CONSENT, MEDICAL AND Name Medical [facility] SURGICAL PROCEDURES Encounters Start End Encounter Admission Attending Care Care Encounter Source Date/Time Date/Time Type Type Clinicians Facility Department ID 2019-09-17 2019-09-17 Letter Kandice [facility] [id number] 00:00:00 00:00:00 (Out) Rupinder Hester [facility] [id number] [facility] [id number] MATERNAL [id number] & CHILD 107 [facility] 2019-09-17 2019-09-17 Letter Kandice [facility] [id number] Univers 00:00:00 00:00:00 (Out) Rupinder Hester [facility] [id number] [facility] [id number] Girogi as MATERNAL [id number] Med ical & CHILD [address] [place] [address] 2019-07-25 2019-07-25 Outpatient R AKINSIPE, [facility] [id number] Univers 13:15:00 13:15:00 RUPINDER [id number] ity o [facility] 2019-07-25 2019-07-25 Outpatient R AKINSIPE, [facility] [id number] Univers 13:15:00 13:15:00 RUPINDER ity o f [facility] 2019-07-25 2019-07-25 Outpatient R AKINSIPE, [facility] [id number] Univers 13:15:00 13:15:00 RUPINDER ity o f [facility] 2019-05-02 2019-05-02 Office Babita KSPRISCIL[facility] [id number] 14:21:33 15:07:33 Visit Jessica Soto [facility] [id number] REGIONAL [id number] MATERNAL [id number] & CHILD 107 [facility] 2019-05-02 2019-05-02 Office Babita KSPRISCIL[facility] [id number] Univers 14:21:33 15:07:33 Visit Jessica Brittany [facility] [id number] it y of REGIONAL 4.2.7.2.686 Giorgi as MATERNAL [id number] [facility] & [address] 2019-05-02 2019-05-02 [facility] [id number] Univers 14:45:00 14:45:00 JESSICA [id number] ity [facility] 2019-05-02 2019-05-02 [facility] [id number] Univers 14:45:00 14:45:00 JESSICA ity [facility] 2019-05-02 2019-05-02 Orders Doctor JARET [id number] 00:00:00 00:00:00 Only Unassigned, VALARIE [id number] [facility] [id number] [id number] [facility] 2019-05-02 2019-05-02 Orders Doctor JARET [id number] Univers 00:00:00 00:00:00 Only Unassigned, VALARIE [id number] ity of [facility] [id number] Giorgi as [id number] [address] 2019-03-03 2019-03-03 Telephone [facility] [id number] Univers 00:00:00 00:00:00 Jessica Brittany [facility] [id number] it y of REGIONAL [id number] Giorgi as MATERNAL [id number] [facility] & CHILD [address] [place] [address] Results Test Description Test Time Test Comments Results Result Comments Source POCT TEST 2019-05-02 20:07:00 Test Item Value Reference Range Interpretation Comme nts POCT PREG (test code = 1605) Negative On board controls acceptable with C Line (test code = 3574) Yes POCT PREG LOT # (test code = 3575) POCT PREG TEST DATE (test code = 3576) [id number] 20:07:00 Test Item Value Reference Range Interpretation Comments POCT PREG (test code = 1605) Negative On board controls acceptable with C Yes Line (test code = 3574) POCT PREG LOT # (test code = 3575) POCT PREG TEST DATE (test code = 3576) [facility]
--- NOTE | 2021-11-05 19:22 | ER ---
Nurse's Notes [facility] Name: Melisa Trammell Age: 21 yrs Sex: Female : 2000 Arrival Date: 11/05/2021 Time: 17:48 Bed Waiting Private MD: Diagnosis: ED Course: 11/05 17:48 Patient arrived in ED. rg4 19:00 Glenys Boykin FNP-C [facility] snw 19:01 Davidson Camacho MD is Attending Physician. snw 19:02 Patient's name was called from ER [employer]. No response. Unable to locate patient. Will bm7 disposition as left without being seen by a provider. 19:22 Patient's name was called from ER [employer]Traxpay. No response. Unable to locate patient. Will bm7 disposition as left without being seen by a provider. Administered Medications: No medications were administered Outcome: 19:22 Patient left the ED. bm7 Signatures: Glenys Boykin FNP-C FNP-Ana Lilia Velasco rg4 Karrie Estevez, RN RN bm7
--- NOTE | 2021-11-05 19:22 | EDPHYS ---
Physician Documentation [facility] Name: Melisa Trammell Age: 21 yrs Sex: Female : 2000 Arrival Date: 11/05/2021 Time: 17:48 Bed Waiting Private MD: ED Physician Davidson Camacho MDM: 11/05 19:03 ED course: Went to triage to see pt. No answer in the lobby. snw Administered Medications: No medications were administered Disposition Summary: 11/05/21 19:22 Eloped Disposition: before being seen by provider bm7 Reason: wait time bm7 Signatures: Glenys Boykin, [employer] IT MANAGER-Csnw Karrie Estevez, RN RN 7
== END 2021-11-05 19:22 | disposition left against medical advice (07) ==
LOC: ER 17:45
DX: Z02.9 Encounter for administrative examinations, unspecified (principal)

== ENCOUNTER 2021-11-06 10:33 | Emergency (ER) | payer SELFPAY ==
--- OUTSIDE RECORDS SUMMARY | 2021-11-06 10:36 | XMS REPORT | Continuity of Care Document ---
:2000 Author Organization [facility] t Address [address] [place] [address] Care Team Providers Name Role Phone Rupinder Garza Attending Clinician [phone] RUPINDER LUQUE Attending Clinician Unavailable Jessica Serra Attending Clinician JESSICA JC Attending Clinician Unavailable Doctor Unassigned, [place] Attending Clinician Unavailable Payers Payer Name Policy Type Policy Number Effective Date Expiration Date S ource Problems Condition Condition Condition Status Onset Resolution Last Treating Co mments Source Name Details Category Date Date Treatment Clinician Date Encounter Encounter Disease Active Uni vers for for 3-18 ity of initial initial 00:00: [place] prescripti prescripti 00 Me dical on of on of Branch contracept contracept rambo pills rambo pills BMI BMI Disease Active Univers 40.0-44.9, 40.0-44.9, 1-02 it y of adult adult 00:00: [address] Branch Elevated Elevated Disease Active Unive rs BP without BP without - it y of diagnosis diagnosis 00:00: s Medical hypertensi hypertensi Br anch on on Nexplanon Nexplanon Disease Active Uni vers in place in place -11 ity of 00:00: [place] [address] Medical Branch Generalize Generalize Disease Active Overview : Univers d anxiety d anxiety 3-10 Tried ity of disorder disorder 00:00: Paxil and Giorgi as 00 she had Medical adverse Branch effects - depressio n/lack of motivatio n. Abnormal Abnormal Disease Active 2013-02 Overview: Un indira liver liver 2- Patient ity of enzymes enzymes 00:00: has had [place] [address] workup Medical for Branch abdominal pain in the past with [place] [facility]. Workup revealed mild [...] Dyslexia Disease Active Unive rs ity of [facility] Allergies, Adverse Reactions, Alerts Allergy Allergy [...] Smoker Universi ty of tobacco use 00:00:00 [facility] Sex Assigned At Universit y of [facility] Tobacco use and 2019-05-02 2019-05-02 Never used Universit y of exposure 00:00:00 00:00:00 [facility] Alcohol intake 2019-05-02 2019-05-02 Current University of 00:00:00 00:00:00 non-drinker of [facility] alcohol ([facility] Branch Smoking Status Start Date Stop Date Source Current some day smoker 2019-05-02 00:00:00 [facility] Medications Ordered Filled Start Stop Current Ordering Indication Dosage Frequency Signature Comments Components Source Medication Medication Date Date Medication? Clinician (SIG) Name Name leigh ann 0 Yes [id number] 1{tbl} Take 1 Univers ne 0.35 mg 3-18 tablet by ity of tablet 00:00: mouth [place] 00 daily. [facility] Branch rolandoro 2019-0 Yes [id number] 1{tbl} Take 1 Univers ne 0.35 mg 3-18 tablet by ity of tablet 00:00: mouth [place] 00 daily. [facility] Branch norezaheerndro 0 Yes [id number] 1{tbl} Take 1 Univers ne 0.35 mg 3-18 tablet by ity of tablet 00:00: mouth [place] 00 daily. [facility] Branch rolandoro 0 Yes [id number] 1{tbl} Take 1 Univers ne 0.35 mg 3-18 tablet by ity of tablet 00:00: mouth [place] 00 daily. Medical Branch No known No Univers medications [facility] Immunizations Ordered Immunization Filled Immunization Date Status Commen ts Source Name Name HPV9 2019-02-15 Completed University of 00:00:00 [facility] HPV9 2019-02-15 Completed University of 00:00:00 [facility] HPV9 2019-02-15 Completed University of 00:00:00 [facility] HPV9 2019-02-15 Completed University of 00:00:00 [facility] HPV9 2019-02-15 Completed University of 00:00:00 [facility] HEPATITIS A 2013-09-26 Completed University of 00:00:00 [facility] HEPATITIS A 2013-09-26 Completed University of 00:00:00 [facility] HEPATITIS A 2013-09-26 Completed University of 00:00:00 [facility] HEPATITIS A 2013-09-26 Completed University of 00:00:00 [facility] HEPATITIS A 2013-09-26 Completed University of 00:00:00 [facility] Meningococcal 2011-09-29 Completed University of Polysaccharide 00:00:00 [facility] genesis (groups A, C, Y and Branc h W-135) conjugate vaccine (MCV4P) Tdap 2011-09-29 Completed University of 00:00:00 [facility] Varicella 2011-09-29 Completed University of (varivax)(chicken 00:00:00 [place] M edical pox) Branch Meningococcal 2011-09-29 Completed University of Polysaccharide 00:00:00 [place] Medi genesis (groups A, C, Y and Branc h W-135) conjugate vaccine (MCV4P) TDAP 2011-09-29 Completed University of 00:00:00 [facility] Varicella 2011-09-29 Completed University of (varivax)(chicken 00:00:00 [place] M edical pox) Branch Meningococcal 2011-09-29 Completed University of Polysaccharide 00:00:00 [place] Medi genesis (groups A, C, Y and Branc h W-135) conjugate vaccine (MCV4P) Tdap 2011-09-29 Completed University of 00:00:00 [facility] Varicella 2011-09-29 Completed University of (varivax)(chicken 00:00:00 [place] M edical pox) Branch Meningococcal 2011-09-29 Completed University of Polysaccharide 00:00:00 [place] Medi genesis (groups A, C, Y and Branc h W-135) conjugate vaccine (MCV4P) Tdap 2011-09-29 Completed University of 00:00:00 [facility] Varicella 2011-09-29 Completed University of (varivax)(chicken 00:00:00 [place] M edical pox) Branch Meningococcal 2011-09-29 Completed University of Polysaccharide 00:00:00 [place] Medi genesis (groups A, C, Y and Branc h W-135) conjugate vaccine (MCV4P) Tdap 2011-09-29 Completed University of 00:00:00 [facility] Varicella 2011-09-29 Completed University of (varivax)(chicken 00:00:00 [place] M [facility]ical pox) Branch HEPATITIS A 2005-05-13 Completed University of 00:00:00 [facility] HEPATITIS A 2005-05-13 Completed University of 00:00:00 [facility] HEPATITIS A 2005-05-13 Completed University of 00:00:00 [facility] HEPATITIS A 2005-05-13 Completed University of 00:00:00 [facility] HEPATITIS A 2005-05-13 Completed University of 00:00:00 [facility] MMR 2003-10-16 Completed University of 00:00:00 [facility] Polio (IPV/OPV) 2003-10-16 Completed Universit y of 00:00:00 [facility] DTAP 2003-10-16 Completed University of 00:00:00 [facility] MMR 2003-10-16 Completed University of 00:00:00 [facility] Polio (IPV/OPV) 2003-10-16 Completed Universit y of 00:00:00 [facility] DTAP 2003-10-16 Completed University of 00:00:00 [facility] MMR 2003-10-16 Completed University of 00:00:00 [facility] Polio (IPV/OPV) 2003-10-16 Completed Universit y of 00:00:00 [facility] DTAP 2003-10-16 Completed University of 00:00:00 [facility] MMR 2003-10-16 Completed University of 00:00:00 [facility] Polio (IPV/OPV) 2003-10-16 Completed Universit y of 00:00:00 [facility] DTAP 2003-10-16 Completed University of 00:00:00 [facility] MMR 2003-10-16 Completed University of 00:00:00 [facility] Polio (IPV/OPV) 2003-10-16 Completed Universit y of 00:00:00 [facility] DTAP 2003-10-16 Completed University of 00:00:00 [facility] MMR 2003-02-27 Completed University of 00:00:00 [facility] Varicella 2003-02-27 Completed University of (varivax)(chicken 00:00:00 [place] M [facility]ical pox) Branch DTAP 2003-02-27 Completed University of 00:00:00 [facility] HIB 4 Dose Schedule 2003-02-27 Completed Unive rsity of 00:00:00 [facility] MMR 2003-02-27 Completed University of 00:00:00 [facility] Varicella 2003-02-27 Completed University of (varivax)(chicken 00:00:00 [place] M edical pox) Branch DTAP 2003-02-27 Completed University of 00:00:00 [facility] HIB 4 Dose Schedule 2003-02-27 Completed Unive rsity of 00:00:00 [facility] MMR 2003-02-27 Completed University of 00:00:00 [facility] Varicella 2003-02-27 Completed University of (varivax)(chicken 00:00:00 [place] M edical pox) Branch DTAP 2003-02-27 Completed University of 00:00:00 [facility] HIB 4 Dose Schedule 2003-02-27 Completed Unive rsity of 00:00:00 [facility] MMR 2003-02-27 Completed University of 00:00:00 [facility] Varicella 2003-02-27 Completed University of (varivax)(chicken 00:00:00 [place] M edical pox) Branch DTAP 2003-02-27 Completed University of 00:00:00 [facility] HIB 4 Dose Schedule 2003-02-27 Completed Unive rsity of 00:00:00 [facility] MMR 2003-02-27 Completed University of 00:00:00 [facility] Varicella 2003-02-27 Completed University of (varivax)(chicken 00:00:00 [place] M edical pox) Branch DTAP 2003-02-27 Completed University of 00:00:00 [facility] HIB 4 Dose Schedule 2003-02-27 Completed Unive rsity of 00:00:00 [facility] HIB 4 Dose Schedule 2000-06-15 Completed Unive rsity of 00:00:00 [facility] HIB 4 Dose Schedule 2000-06-15 Completed Unive rsity of 00:00:00 [facility] HIB 4 Dose Schedule 2000-06-15 Completed Unive rsity of 00:00:00 [facility] HIB 4 Dose Schedule 2000-06-15 Completed Unive rsity of 00:00:00 [facility] HIB 4 Dose Schedule 2000-06-15 Completed Unive rsity of 00:00:00 [facility] Polio (IPV/OPV) 2000-03-16 Completed Universit y of 00:00:00 [facility] DTAP 2000-03-16 Completed University of 00:00:00 [facility] HIB 4 Dose Schedule 2000-03-16 Completed Unive rsity of 00:00:00 [facility] Hep B, Adol or Pedi 2000-03-16 Completed Unive rsity of Dosage 00:00:00 [facility] Polio (IPV/OPV) 2000-03-16 Completed Universit y of 00:00:00 [facility] DTAP 2000-03-16 Completed University of 00:00:00 [facility] HIB 4 Dose Schedule 2000-03-16 Completed Unive rsity of 00:00:00 [facility] Hep B, Adol or Pedi 2000-03-16 Completed Unive rsity of Dosage 00:00:00 [facility] Polio (IPV/OPV) 2000-03-16 Completed Universit y of 00:00:00 [facility] Branch DTAP 2000-03-16 Completed University of 00:00:00 [facility] HIB 4 Dose Schedule 2000-03-16 Completed Unive rsity of 00:00:00 [facility] Branch Hep B, Adol or Pedi 2000-03-16 Completed Unive rsity of Dosage 00:00:00 [facility] Polio (IPV/OPV) 2000-03-16 Completed Universit y of 00:00:00 [facility] Branch DTAP 2000-03-16 Completed University of 00:00:00 [facility] HIB 4 Dose Schedule 2000-03-16 Completed Unive rsity of 00:00:00 [facility] Branch Hep B, Adol or Pedi 2000-03-16 Completed Unive rsity of Dosage 00:00:00 [facility] Polio (IPV/OPV) 2000-03-16 Completed Universit y of 00:00:00 [facility] DTAP 2000-03-16 Completed University of 00:00:00 [facility] HIB 4 Dose Schedule 2000-03-16 Completed Unive rsity of 00:00:00 [facility] Branch Hep B, Adol or Pedi 2000-03-16 Completed Unive rsity of Dosage 00:00:00 [facility] Polio (IPV/OPV) 2000-01-11 Completed Universit y of 00:00:00 [facility] DTAP 2000-01-11 Completed University of 00:00:00 [facility] Branch Polio (IPV/OPV) 2000-01-11 Completed Universit y of 00:00:00 [facility] DTAP 2000-01-11 Completed University of 00:00:00 [facility] Branch Polio (IPV/OPV) 2000-01-11 Completed Universit y of 00:00:00 [facility] DTAP 2000-01-11 Completed University of 00:00:00 [facility] Branch Polio (IPV/OPV) 2000-01-11 Completed Universit y of 00:00:00 [facility] DTAP 2000-01-11 Completed University of 00:00:00 [facility] Polio (IPV/OPV) 2000-01-11 Completed Universit y of 00:00:00 [facility] DTAP 2000-01-11 Completed University of 00:00:00 [facility] Polio (IPV/OPV) 1999 Completed Universit y of 00:00:00 [place] [facility] DTAP 1999 Completed University of 00:00:00 [place] [facility] HIB 4 Dose Schedule 1999 Completed Unive rsity of 00:00:00 [place] [facility] Hep B, Adol or Pedi 1999 Completed Unive rsity of Dosage 00:00:00 [facility] Polio (IPV/OPV) 1999 Completed Universit y of 00:00:00 [place] [facility] DTAP 1999 Completed University of 00:00:00 [facility] HIB 4 Dose Schedule 1999 Completed Unive rsity of 00:00:00 [place] [facility] Hep B, Adol or Pedi 1999 Completed Unive rsity of Dosage 00:00:00 [facility] DTAP 1999 Completed University of 00:00:00 [facility] Polio (IPV/OPV) 1999 Completed Universit y of 00:00:00 [place] [facility] HIB 4 Dose Schedule 1999 Completed Unive rsity of 00:00:00 [place] [facility] Hep B, Adol or Pedi 1999 Completed Unive rsity of Dosage 00:00:00 [facility] Polio (IPV/OPV) 1999 Completed Universit y of 00:00:00 [facility] DTAP 1999 Completed University of 00:00:00 [facility] HIB 4 Dose Schedule 1999 Completed Unive rsity of 00:00:00 [place] [facility] Hep B, Adol or Pedi 1999 Completed Unive rsity of Dosage 00:00:00 [facility] Polio (IPV/OPV) 1999 Completed Universit y of 00:00:00 [place] [facility] DTAP 1999 Completed University of 00:00:00 [place] [facility] HIB 4 Dose Schedule 1999 Completed Unive rsity of 00:00:00 [place] [facility] Hep B, Adol or Pedi 1999 Completed Unive rsity of Dosage 00:00:00 [place] [facility] Hep B, Adol or Pedi 1999 Completed Unive rsity of Dosage 00:00:00 [place] [facility] Hep B, Adol or Pedi 1999 Completed Unive rsity of Dosage 00:00:00 [facility] Hep B, Adol or Pedi 1999 Completed Unive rsity of Dosage 00:00:00 [place] [facility] Hep B, Adol or Pedi 1999 Completed Unive rsity of Dosage 00:00:00 [facility] Hep B, Adol or Pedi 1999 Completed Unive rsity of Dosage 00:00:00 [facility] Vital Signs Vital Name Observation Time Observation Value Comments Source Systolic blood 2019-05-02 19:30:00 143 mm[Hg] Univer sity of pressure [facility] Diastolic blood 2019-05-02 19:30:00 83 mm[Hg] Unive rsity of pressure [facility] Heart rate 2019-05-02 19:30:00 69 /min Universi ty of [facility] Body temperature 2019-05-02 19:29:00 36.11 Mandy Univ ersity of [facility] Respiratory rate 2019-05-02 19:29:00 16 /min Univ ersity of [facility] Body height 2019-05-02 19:29:00 160 cm Universi ty of [facility] Body weight 2019-05-02 19:29:00 114.448 kg Universi ty of [facility] BMI 2019-05-02 19:29:00 44.70 kg/m2 Universi ty of [facility] Systolic blood 2019-05-02 19:30:00 143 mm[Hg] Univer sity of pressure [facility] Diastolic blood 2019-05-02 19:30:00 83 mm[Hg] Unive rsity of pressure [facility] Heart rate 2019-05-02 19:30:00 69 /min Universi ty of [facility] Body temperature 2019-05-02 19:29:00 36.11 Mandy Univ ersity of [facility] Branch Respiratory rate 2019-05-02 19:29:00 16 /min Univ ersity of [facility] Body height 2019-05-02 19:29:00 160 cm Universi ty of [place] [facility] [place] Body weight 2019-05-02 19:29:00 114.448 kg Universi ty of [facility] BMI 2019-05-02 19:29:00 44.70 kg/m2 Universi ty [facility] Procedures Procedure Date / Time Performed Performing Clinician Sourc e POCT TEST 2019-05-02 20:07:00 Jessica Jc [facility] DISCLOSURE AND 2019-05-02 05:01:00 Doctor Unassigned, [facility] CONSENT, MEDICAL AND Name Medical Bra [facility] SURGICAL PROCEDURES Encounters Start End Encounter Admission Attending Care Care Encounter Source Date/Time Date/Time Type Type Clinicians Facility Department ID 2019-09-17 2019-09-17 Letter Kandice [facility] [id number] 00:00:00 00:00:00 (Out) Rupinder Hester [employer] [id number] [facility] [id number] MATERNAL [id number] & CHILD 107 [facility] 2019-09-17 2019-09-17 Letter Kandice [facility] [id number] Univers 00:00:00 00:00:00 (Out) Rupinder Hester [employer] [id number] [facility] [id number] Giorgi as MATERNAL [id number] Med ical & CHILD [address] [place] [address] 2019-07-25 2019-07-25 Outpatient R AKINSIPE, [facility] [id number] Univers 13:15:00 13:15:00 RUPINDER [id number] ity o [facility] 2019-07-25 2019-07-25 Outpatient R AKINSIPE, [facility] [id number] Univers 13:15:00 13:15:00 RUPINDER ity o f [facility] 2019-07-25 2019-07-25 Outpatient R AKINSIPE, [facility] [id number] Univers 13:15:00 13:15:00 RUPINDER ity o f [facility] 2019-05-02 2019-05-02 Office Babita LAPRISCILA [id number] 14:21:33 15:07:33 Visit Jessica Soto [employer] [id number] REG[facility]AL [id number] MATERNAL [id number] & CHILD 107 [facility] 2019-05-02 2019-05-02 Office Babita LAPRISCILA [id number] Univers 14:21:33 15:07:33 Visit Jessica Brittany [employer] [id number] it y of REGIONAL [id number] Giorgi as MATERNAL [id number] [facility] & [address] 2019-05-02 2019-05-02 [facility] [id number] Univers 14:45:00 14:45:00 JESSICA [id number] ity [facility] 2019-05-02 2019-05-02 [facility] [id number] Univers 14:45:00 14:45:00 JESSICA ity [facility] 2019-05-02 2019-05-02 Orders Doctor JARET [id number] 00:00:00 00:00:00 Only Unassigned, VALARIE [id number] [facility] [id number] [facility] 2019-05-02 2019-05-02 Orders Doctor JARET [id number] Univers 00:00:00 00:00:00 Only Unassigned, VALARIE [id number] ity of [place] [id number] Giorgi as [id number] [address] 2019-03-03 2019-03-03 Telephone [facility] [id number] Univers 00:00:00 00:00:00 Jessica Brittany [employer] H[employer] [id number] it y of REGIONAL [id number] Giorgi as MATERNAL [id number] [facility] & CHILD [address] [place] [address] Results Test Description Test Time Test Comments Results Result Comments Source POCT TEST 2019-05-02 20:07:00 Test Item Value Reference Range Interpretation Comme nts POCT PREG (test code = 1605) Negative On board controls acceptable with C Line (test code = 3574) Yes POCT PREG LOT # (test code = 3575) PO[facility] TEST DATE (test code = 3576[id number] 20:07:00 Test Item Value Reference Range Interpretation Comments POCT PREG (test code = 1605) Negative On board controls acceptable with C Yes Line (test code = 3574) POCT PREG LOT # (test code = 3575) POCT PREG TEST DATE (test code = 3576) [facility]
[2021-11-06] MEDS ORDERED: KETOROLAC 30 MG/ML INJ ONE (11:48)
[2021-11-06] MEDS ORDERED: MEPERIDINE HCL 25 MG/ML SYR ONE (11:48)
[2021-11-06] MEDS ORDERED: NA CHLORIDE 0.9% 1,000 ML ONE (11:48)
[2021-11-06] MEDS ORDERED: dexAMETHasone 10 MG/ML VIAL ONE (11:48)
--- NOTE | 2021-11-06 13:42 | EDPHYS ---
Physician Documentation [facility] Name: Melisa Trammell Age: 21 yrs Sex: Female : 2000 Arrival Date: 11/06/2021 Time: 10:35 Bed 10 Private MD: ED Physician Peter Fraser HPI: 11/06 11:52 This 21 yrs old Female presents to ER via Ambulatory with complaints of rn Headache. 11:52 The patient complains of pain to the top of head. The patient describes the headache as rn aching. Onset: The symptoms/episode began/occurred 3 day(s) ago. Associated signs and symptoms: Pertinent positives: nausea, Pertinent negatives: altered mental status, fever, neck stiffness. Severity of symptoms: At its worst the pain was moderate, "similar to past headaches", in the emergency department the pain is unchanged. Headache History: The patient has had previous headaches and this one is similar to previous episodes. The patient has experienced similar episodes in the past. The patient has not recently seen a physician. Historical: - Allergies: 10:41 Codeine; iw - Home Meds: 10:41 None [Active]; iw - PMHx: 10:41 fatty liver; iw - Family history:: not pertinent. - Hospitalizations: : No recent hospitalization is reported. ROS: 11:52 Constitutional: Negative for fever, chills, and weight loss, Eyes: Negative for injury, rn pain, redness, and discharge, Neck: Negative for injury, pain, and swelling, Cardiovascular: Negative for chest pain, palpitations, and edema, Respiratory: Negative for shortness of breath, cough, wheezing, and pleuritic chest pain, Abdomen/GI: Negative for abdominal pain, vomiting, diarrhea, and constipation, Back: Negative for injury and pain, MS/Extremity: Negative for injury and deformity, Skin: Negative for injury, rash, and discoloration, Neuro: Negative for weakness, numbness, tingling, and seizure. Exam: 11:52 Constitutional: This is a well developed, well nourished patient who is awake, alert, rn and in no acute distress. Head/Face: Normocephalic, atraumatic. Eyes: Pupils equal round and reactive to light, extra-ocular motions intact. Periorbital areas with no swelling, redness, or edema. Neck: Trachea midline, no thyromegaly or masses palpated, and no cervical lymphadenopathy. Supple, full range of motion without nuchal rigidity, or vertebral point tenderness. No Meningismus. Cardiovascular: Regular rate and rhythm. No pulse deficits. Respiratory: No increased work of breathing, no retractions or nasal flaring. Skin: Warm, dry MS/ Extremity: Pulses equal, no cyanosis. Neurovascular intact. Full, normal range of motion. Equal circumference. Neuro: Awake and alert, GCS 15, oriented to person, place, time, and situation. Cranial nerves II-XII grossly intact. Motor strength 5/5 in all extremities. Sensory grossly intact. Cerebellar exam normal. Normal gait. Vital Signs: 10:39 BP 122 / 76; Pulse 73; Resp 16; Temp 97.8; Pulse Ox 98% on R/A; Weight 104.33 kg; iw Height 5 ft. 3 in. (160.02 cm); Pain 8/10; 10:39 Body Mass Index 40.74 (104.33 kg, 160.02 cm) iw Medhat Coma Score: 13:40 Eye Response: spontaneous(4). Verbal Response: oriented(5). Motor Response: obeys rn commands(6). Total: 15. MDM: 10:51 Patient medically screened. rn 13:40 Differential diagnosis: migraine. Data reviewed: vital signs, nurses notes, and as a rn result, I will discharge patient. Counseling: I had a detailed discussion with the patient and/or guardian regarding: the historical points, exam findings, and any diagnostic results supporting the discharge/admit diagnosis, the need for outpatient follow up, to return to the emergency department if symptoms worsen or persist or if there are any questions or concerns that arise at home. Response to treatment: the patient's symptoms have markedly improved after treatment, and as a result, I will discharge patient. 11/06 10:59 Order name: IV Start; Complete Time: 11:51 rn Administered Medications: 11:50 Drug: Demerol (meperidine) 25 mg Route: IVP; Site: right antecubital; iw 11:50 Drug: NS 0.9% 1000 ml Route: IV; Rate: 1000 ml; Site: right antecubital; iw 11:50 Drug: Ketorolac 30 mg Route: IVP; Site: right antecubital; iw 11:50 Drug: Decadron - Dexamethasone 10 mg Route: IVP; Site: right antecubital; iw Disposition Summary: 11/06/21 13:41 Discharge Ordered Location: Home rn Problem: an acute exacerbation rn Symptoms: have improved rn Condition: Stable rn Diagnosis - Migraine, unspecified, not intractable, without status migrainosus rn Followup: rn - With: Tobias Zhang MD - When: As needed - Reason: Recheck today's complaints, Re-evaluation by your physician Discharge Instructions: - Discharge Summary Sheet rn - Migraine Headache rn Forms: - Medication Reconciliation Form rn - Thank You Letter rn - Antibiotic rn icu - Work release form iw - Prescription Opioid Use rn Signatures: Miriam Smith RN RN iw ePter Fraser MD MD rn
--- NOTE | 2021-11-06 13:42 | ER ---
Nurse's Notes [facility] Name: Melisa Trammell Age: 21 yrs Sex: Female : 2000 Arrival Date: 11/06/2021 Time: 10:35 Bed 10 Private MD: Diagnosis: Migraine, unspecified, not intractable, without status migrainosus Presentation: 11/06 10:39 Chief complaint: Patient states: has hx of migraines her whole life, past three days iw pain is bad, making her sick, she came last night but it was too loud in waiting area , is not prescribed migraine medication. Coronavirus screen: At this time, the client does not indicate any symptoms associated with coronavirus-19. Ebola Screen: Patient negative for fever greater than or equal to 101.5 degrees Fahrenheit, and additional compatible Ebola Virus Disease symptoms Patient denies exposure to infectious person. Patient denies travel to an Ebola-affected area in the 21 days before illness onset. No symptoms or risks identified at this time. Initial Sepsis Screen: Does the patient meet any 2 criteria? No. Patient's initial sepsis screen is negative. Does the patient have a suspected source of infection? No. Patient's initial sepsis screen is negative. Risk Assessment: Do you want to hurt yourself or someone else? Patient reports no desire to harm self or others. Onset of symptoms was November 03, 2021. 10:39 Method Of Arrival: Ambulatory iw 10:39 Acuity: BILLIE 3 iw Historical: - Allergies: 10:41 Codeine; iw - Home Meds: 10:41 None [Active]; iw - PMHx: 10:41 fatty liver; iw - Family history:: not pertinent. - Hospitalizations: : No recent hospitalization is reported. Vital Signs: 10:39 BP 122 / 76; Pulse 73; Resp 16; Temp 97.8; Pulse Ox 98% on R/A; Weight 104.33 kg; iw Height 5 ft. 3 in. (160.02 cm); Pain 8/10; 10:39 Body Mass Index 40.74 (104.33 kg, 160.02 cm) iw Marvin Coma Score: 13:40 Eye Response: spontaneous(4). Verbal Response: oriented(5). Motor Response: obeys rn commands(6). Total: 15. ED Course: 10:35 Patient arrived in ED. mr Hanh:41 Triage completed. iw 10:41 Arm band placed on. iw 10:51 Peter Fraser MD is Attending Physician. rn 11:35 Miriam Smith RN is Primary Nurse. iw 11:35 Inserted saline lock: 20 gauge in right antecubital area, using aseptic technique. iw 13:40 Tobias Zhang MD is Referral Physician. rn Administered Medications: 11:50 Drug: Demerol (meperidine) 25 mg Route: IVP; Site: right antecubital; iw 11:50 Drug: NS 0.9% 1000 ml Route: IV; Rate: 1000 ml; Site: right antecubital; iw 11:50 Drug: Ketorolac 30 mg Route: IVP; Site: right antecubital; iw 11:50 Drug: Decadron - Dexamethasone 10 mg Route: IVP; Site: right antecubital; iw Outcome: 13:41 Discharge ordered by . rn 14:31 Patient left the ED. iw Signatures: Sabina Del Toro mr Miriam Smith RN RN iw Peter Fraser MD MD rn
[2021-11-08 01:19] VITALS: BP 122/76; TEMP 97.8; O2SAT 98
== END 2021-11-06 14:31 | disposition home or self-care (01) ==
LOC: ER 10:33
DX: G43.009 Migraine without aura, not intractable, without status migrainosus (principal)
CPT/HCPCS: 96374; 96375; 99283; J1100; J2175; J7030

== ENCOUNTER → 2023-02-27 | Emergency (ER) | payer SELFPAY ==
[~2023-02-27] MED LIST: ACETAMINOPHEN 500 MG TAB ONE; CEFTRIAXONE 1000 MG/VIAL ONE; HYDROCOD 2.5mg-ACETAMIN 108mg/5mL Soln ONE; dexAMETHasone 10 MG/ML VIAL ONE
--- OUTSIDE RECORDS SUMMARY | 2023-02-27 16:51 | XMS REPORT | Continuity of Care Document ---
Author Name Unknown Address [address] [facility] [address] [place] [address] [facility] thconnect Address [address] [facility] [place] [address] Care Team Providers Care Jr. Java Developer Name Role Phone STEPHANIE LUQUE Primary Care Physician Unav ailable STEPHANIE LUQUE Attending Clinician Unavail able Stephanie Garza Attending Clinician + Daron Serra Attending Clinician [phone] DARON JC Attending Clinician Unavailabl e Doctor Unassigned, [place] Attending Clinician U navailable Payers Payer Name Policy Type Policy Number Effective Date Expirati on Date Source [facility] [id number] 2019 00:00:00 Problems Condition Name Condition Details Condition Category Status Onset Date Resolution Date Last Treatment Date Treating Clinician Comments Source Encounter for initial prescripti on of contracept rambo pills Encounter for initial prescripti on of contracept rambo pills Disease Active 3-18 00:00: 00 [facility] BMI 40.0-44.9, adult BMI 40.0-44.9, adult Disease Active 02-15 00:00: 00 [facility] Elevated BP without diagnosis of hypertensi on Elevated BP without diagnosis of hypertensi on Disease Active 02-15 00:00: 00 [facility] Nexplanon in place Nexplanon in place Disease Active 02-24 00:00: 00 [facility] Generalize d anxiety disorder Generalize d anxiety disorder Disease Active 04-23 00:00: 00 Overview: Tried Paxil and she had adverse effects - depressio n/lack of motivatio n. [facility] Abnormal liver enzymes Abnormal liver enzymes Disease Active 2013-02 00:00: 00 Overview: Patient has had workup for abdominal pain in the past with [facility] gastroent erology. Workup revealed mild fatty [...] should be revaccina juan with follow-up titers. [facility] Irregular menstrual cycle Irregular menstrual cycle Disease Active 09-26 00:00: 00 Overview: Patient has secondary amenorrhe a and has on average [address] Hancock is managing this issue - began Provera 12/2014 [facility] Acanthosis nigricans Acanthosis nigricans Disease Active 09-26 00:00: 00 [facility] Dyslexia Dyslexia Disease Active [facility] Allergies, Adverse Reactions, Alerts Allergy Name Allergy Type Status Severity Reaction(s) Onset Date Inactive Date Treating Clinician Comments Source CODEINE DRUG INGREDI Active [facility] 05-17 00:00: 00 [facility] Codeine Propensi ty to adverse reaction s Active [facility] 05-17 00:00: 00 [facility] Social History Social Habit Start Date Stop Date Quantity Comments Source History of tobacco use 2017-02-15 00:00:00 Cigarette Smoker [facility] Sex Assigned At [facility] Tobacco use and exposure 2019-05-02 00:00:00 2019-05-02 00:00:00 Never used [facility] Alcohol intake 2019-05-02 00:00:00 2019-05-02 00:00:00 Current non-drinker of alcohol (finding) [facility] Smoking Status Start Date Stop Date Source Current some day smoker 2019-05-02 00:00:00 [facility] Medications Ordered Medication Name Filled Medication Name Start Date Stop Date Current Medication? Ordering Clinician Indication Dosage Frequency Signature (SIG) Comments Components Source norethindro ne 0.35 mg tablet 05-01 00:00: 00 Yes [id number] 1{tbl} Take 1 tablet by mouth daily. [facility] norethindro ne 0.35 mg tablet 05-01 00:00: 00 Yes [id number] 1{tbl} Take 1 tablet by mouth daily. [facility] norethindro ne 0.35 mg tablet 05-01 00:00: 00 Yes [id number] 1{tbl} Take 1 tablet by mouth daily. [facility] norethindro ne 0.35 mg tablet 05-01 00:00: 00 Yes [id number] 1{tbl} Take 1 tablet by mouth daily. [facility] No known medications No Un indira [facility] Vital Signs Vital Name Observation Time Observation Value Comments S ourkhloe Systolic blood pressure 2019-05-02 19:30:00 143 mm[Hg] [facility] Diastolic blood pressure 2019-05-02 19:30:00 83 mm[Hg] [facility] Heart rate 2019-05-02 19:30:00 69 /min [facility] Body temperature 2019-05-02 19:29:00 36.11 Mandy [facility] Respiratory rate 2019-05-02 19:29:00 16 /min [facility] Body height 2019-05-02 19:29:00 160 cm [facility] Body weight 2019-05-02 19:29:00 114.448 kg [facility] BMI 2019-05-02 19:29:00 44.70 kg/m2 [facility] Systolic blood pressure 2019-05-02 19:30:00 143 mm[Hg] [facility] Diastolic blood pressure 2019-05-02 19:30:00 83 mm[Hg] Dickson o [facility] Heart rate 2019-05-02 19:30:00 69 /min [facility] Body temperature 2019-05-02 19:29:00 36.11 Mandy [facility] Respiratory rate 2019-05-02 19:29:00 16 /min [facility] Body height 2019-05-02 19:29:00 160 cm [facility] Body weight 2019-05-02 19:29:00 114.448 kg [facility] BMI 2019-05-02 19:29:00 44.70 kg/m2 [facility] Procedures Procedure Date / Time Performed Performing Clinicia n Source POCT TEST 2019-05-02 20:07:00 Christiano Jc [facility] DISCLOSURE AND CONSENT, MEDICAL AND SURGICAL PROCEDURES 2019-05-02 05:01:00 Doctor Unassigned, [place] [facility] Encounters Start Date/Time End Date/Time Encounter Type Admission Type Attending Clinicians Care Facility Care Department Encounter ID Source 2022-11-30 14:30:00 2022-11-30 14:30:00 Outpatient R STEPHANIE LUQUE [facility] [id number] [facility] 2019-09-17 00:00:00 2019-09-17 00:00:00 Letter (Out) Stephanie Luque [facility] DEDICATED DRIVER [facility]ILD [facility] .[id number] 2019-09-17 00:00:00 2019-09-17 00:00:00 Letter (Out) Stephanie Luque [facility] DEDICATED DRIVER [facility] CHILD [facility] ..[id number] [id number] [facility] 2019-07-25 13:15:00 2019-07-25 13:15:00 Outpatient R STEPHANIE LUQUE [facility] [id number] [facility] 2019-07-25 13:15:00 2019-07-25 13:15:00 Outpatient R STEPHANIE LUQUE [facility] [id number] [facility] 2019-05-02 14:21:33 2019-05-02 15:07:33 Office Visit Daron Jc [facility] DEDICATED DRIVER [facility]ILD [facility] [id number] 2019-05-02 14:21:33 2019-05-02 15:07:33 Office Visit Daron Jc [facility] DEDICATED DRIVER [facility] [id number] [facility] 2019-05-02 14:45:00 2019-05-02 14:45:00 Outpatient R DARON JC [facility] [id number] [facility] 2019-05-02 00:00:00 2019-05-02 00:00:00 Orders Only Doctor Unassigned, [place] [facility] [id number] 2019-05-02 00:00:00 2019-05-02 00:00:00 Orders Only Doctor Unassigned, [place] [facility] [id number] [facility] 2019-03-03 00:00:00 2019-03-03 00:00:00 Telephone Daron Jc [facility] [id number] [facility] Results Test Description Test Time Test Comments Results Result Co mments Source [id number] 20:07:00* Test Item Value Reference Range Interpretation Comme nts POCT PREG (test code = 1605) Negative On board controls acceptable with C Line (test code = 3574) Yes POCT PREG LOT # (test code = 3575) POCT PREG TEST DATE ( test code = 3576) [facility]
[2023-02-27 18:50] LABS: Specific Gravity 1.013 (1.005-1.030)
[2023-02-27 18:51] LABS: Specific Gravity 1.013 (1.005-1.030); Urine Bacteria None Seen /HPF (<20); Urine Bilirubin NEGATIVE (Negative); Urine Blood Negative (Negative); Urine Clarity Turbid (Clear); Urine Color Light-Yellow (Yellow); Urine Glucose NEGATIVE (Negative); Urine Mucus Slight /HPF (None Seen); Urine Protein NEGATIVE (Negative); Urine RBC <5 /HPF (None Seen); Urine Urobilinogen Normal (Normal); Urine WBC Clump Rare /HPF (None Seen)
--- NOTE | 2023-02-27 19:05 | EDPHYS ---
Physician Documentation [facility] Name: Melisa Trammell Age: 22 yrs Sex: Female : 2000 Arrival Date: 02/27/2023 Time: 16:49 Bed 10 Private MD: ED Physician Davidson Camacho HPI: 02/27 17:25 This 22 yrs old Female presents to ER via Wheelchair with complaints of Flu cp Symptoms. 17:25 The patient or guardian reports cough, flu symptoms, fever, body aches, sore throat. cp 17:25 Onset: The symptoms/episode began/occurred yesterday. Associated signs and symptoms: cp Pertinent negatives: chest pain, diarrhea, vomiting, abdominal pain. Severity of symptoms: in the emergency department the symptoms are unchanged despite home interventions. Historical: - Allergies: 17:13 Codeine; cm10 - PMHx: 17:13 fatty liver; cm10 - Immunization history:: Adult Immunizations unknown. - Social history:: Smoking status: Reported history of juuling and/or vaping. ROS: 17:30 Constitutional: Positive for body aches, chills, Negative for fever, poor PO intake, cp 17:30 Eyes: Negative for injury, pain, redness, and discharge, cp 17:30 ENT: Positive for sore throat, Negative for drainage from ear(s), ear pain, difficulty swallowing, difficulty handling secretions, 17:30 Cardiovascular: Negative for chest pain, 17:30 Respiratory: Positive for cough, Negative for shortness of breath, wheezing, 17:30 Abdomen/GI: Negative for abdominal pain, vomiting, diarrhea, constipation, 17:30 : Negative for urinary symptoms, 17:30 Neuro: Positive for headache, Negative for altered mental status, 17:30 All other systems are negative, Exam: 17:35 Constitutional: The patient appears in no acute distress, alert, awake, non-toxic, well cp developed, well nourished, uncomfortable, 17:35 Head/Face: Normocephalic, atraumatic. cp 17:35 Eyes: Periorbital structures: appear normal, Conjunctiva: normal, no exudate, no injection, Sclera: no appreciated abnormality, Lids and lashes: appear normal, bilaterally, 17:35 ENT: External ear(s): are unremarkable, Ear canal(s): are normal, clear, TM's: dullness, bilaterally, Nose: is normal, Mouth: Lips: moist, Oral mucosa: moist, Posterior pharynx: Airway: no evidence of obstruction, patent, Tonsils: bilaterally enlarged, with erythema, with exudate, Uvula: midline, erythema, that is moderate, 17:35 Neck: ROM/movement: is normal, is supple, no meningismus, no nuchal rigidity, 17:35 Chest/axilla: Inspection: normal, 17:35 Cardiovascular: Rate: normal, Rhythm: regular, 17:35 Respiratory: the patient does not display signs of respiratory distress, Respirations: normal, no use of accessory muscles, no retractions, labored breathing, is not present, Breath sounds: are clear throughout, no decreased breath sounds, no stridor, no wheezing, 17:35 Abdomen/GI: Exam negative for discomfort, distension, guarding, Inspection: abdomen appears normal, 17:35 Skin: no rash present. Vital Signs: 17:12 BP 132 / 92; Pulse 81; Resp 18; Temp 98.3(O); Pulse Ox 100% ; Weight 117.93 kg; Height cm10 5 ft. 3 in. ; Pain 10/10; 17:12 Body Mass Index 46.06 (117.93 kg, 160.02 cm) cm10 17:12 Pain Scale: Adult cm10 MDM: 17:15 Patient medically screened. cp 19:03 Data reviewed: vital signs, nurses notes, lab test result(s). cp 19:03 Differential diagnosis: bronchitis, flu, URI, pneumonia, strep throat. I considered the cp following discharge prescriptions or medication management in the emergency department Medications were administered in the Emergency Department. See MAR. Counseling: I had a detailed discussion with the patient and/or guardian regarding the historical points, exam findings, and any diagnostic results supporting the discharge/admit diagnosis, lab results, to return to the emergency department if symptoms worsen or persist or if there are any questions or concerns that arise at home. 02/27 17:19 Order name: COVID-19 SARS RT PCR; Complete Time: 18:38 cp 02/27 17:19 Order name: Strep; Complete Time: 18:38 cp 02/27 18:39 Interpretation: Reviewed. 02/27 17:19 Order name: Influenza Screen (a \T\ B); Complete Time: 18:38 cp 02/27 17:19 Order name: Urinalysis W/Microscopic; Complete Time: 18:57 cp 02/27 18:57 Interpretation: Normal except: [facility] Turbid; UESTR 250; UWBC 20-50. cp 02/27 17:19 Order name: Test, Urine; Complete Time: 18:57 cp 02/27 19:03 Order name: Urine Culture EDMS Administered Medications: 17:25 Drug: Acetaminophen PO 1000 mg PO once Route: PO; cm10 18:55 Follow up: Response: No adverse reaction cm10 19:15 Drug: Rocephin (cefTRIAXone) IM 1 grams IM once Route: IM; Site: right gluteus; bp 19:34 Follow up: Response: No adverse reaction bp 19:15 Drug: Lortab PO Liquid 15 ml PO once Route: PO; bp 19:34 Follow up: Response: No adverse reaction bp 19:15 Drug: Dexamethasone PO 10 mg PO once Route: PO; bp 19:34 Follow up: Response: No adverse reaction bp Disposition Summary: 02/27/23 19:04 Discharge Ordered Notes: Location: Home cp Problem: new cp Symptoms: have improved cp Condition: Stable cp Diagnosis - Acute streptococcal tonsillitis, unspecified cp - UTI/ Urinary tract infection, site not specified cp Followup: cp - With: Private Physician - When: 1 - 2 days - Reason: Worsening of condition Discharge Instructions: - Discharge Summary Sheet cp - Tonsillitis cp - Urinary Tract Infection, Adult cp Forms: - Medication Reconciliation Form cp - Thank You Letter cp - Antibiotic Education cp - Prescription Opioid Use cp - Patient Portal Instructions cp - Leadership Thank You Letter cp - Work release form as6 Prescriptions: - Augmentin 875-125 mg Oral Tablet - take 1 tablet ORAL route every 12 hours for 10 days; 20 tablet; Refills: 0, cp Product Selection Permitted - Diclofenac Sodium 75 mg Oral tablet, delayed release (enteric coated) - take 1 tablet ORAL route 2 times per day; 20 tablet; Refills: 0, Product cp Selection Permitted Signatures: Dispatcher [employer] EDMS Davidson Ramirez PA PA cp Peltier, Brian RN RN Caryn Zavaleta RN RN cm10
--- NOTE | 2023-02-27 19:05 | ER ---
Nurse's Notes [facility] Name: Melisa Trammell Age: 22 yrs Sex: Female : 2000 Arrival Date: 02/27/2023 Time: 16:49 Bed 10 Private MD: Diagnosis: Acute streptococcal tonsillitis, unspecified;UTI/ Urinary tract infection, site not specified Presentation: 02/27 17:12 Chief complaint: Patient states: Generalized body aches onset last night. Pt states cm10 that her entire body hurts. Pt also reports headache. Coronavirus screen: Vaccine status: Patient reports being unvaccinated. Client denies travel out of the [place] in the last 14 days. Ebola Screen: Patient denies travel to an Ebola-affected area in the 21 days before illness onset. No symptoms or risks identified at this time. Initial Sepsis Screen: Does the patient meet any 2 criteria? No. Patient's initial sepsis screen is negative. Does the patient have a suspected source of infection? No. Patient's initial sepsis screen is negative. Risk Assessment: Do you want to hurt yourself or someone else? Patient reports no desire to harm self or others. Onset of symptoms was February 27, 2023. 17:12 Method Of Arrival: Wheelchair cm10 17:12 Acuity: BILLIE 4 cm10 Triage Assessment: 17:13 General: Appears in no apparent distress. comfortable, Behavior is crying. Pain: cm10 Complains of pain in Generalized body aches. EENT: No deficits noted. Throat is reddened has patchy exudate Reports Sore throat. Neuro: No deficits noted. Level of Consciousness is awake, alert, obeys commands, Oriented to person, place, time, situation, Speech is normal, Reports headache. Cardiovascular: No deficits noted. Patient's skin is warm and dry. Respiratory: No deficits noted. Airway is patent Respiratory effort is even, unlabored, Respiratory pattern is regular, symmetrical. GI: No deficits noted. No signs and/or symptoms were reported involving the gastrointestinal system. : No deficits noted. No signs and/or symptoms were reported regarding the genitourinary system. Derm: No deficits noted. No signs and/or symptoms reported regarding the dermatologic system. Musculoskeletal: No deficits noted. No signs and/or symptoms reported regarding the musculoskeletal system. Range of motion: intact in all extremities. Historical: - Allergies: 17:13 Codeine; cm10 - PMHx: 17:13 fatty liver; cm10 - Immunization history:: Adult Immunizations unknown. - Social history:: Smoking status: Reported history of juuling and/or vaping. Screenin:54 [facility] ED Fall Risk Assessment (Adult) History of falling in the last 3 months, cm10 including since admission No falls in past 3 months (0 pts) Confusion or Disorientation No (0 pts) Intoxicated or Sedated No (0 pts) Impaired Gait Yes (1 pt) Mobility Assist Device Used Yes (1 pt) Altered Elimination No (0 pt) Score/Fall Risk Level 0 - 2 = Low Risk Oriented to surroundings, Maintained a safe environment, Hourly rounding (assess needs \T\ fall precautionary measures) done. Abuse screen: Denies threats or abuse. Denies injuries from another. Nutritional screening: No deficits noted. Tuberculosis screening: No symptoms or risk factors identified. Vital Signs: 17:12 BP 132 / 92; Pulse 81; Resp 18; Temp 98.3(O); Pulse Ox 100% ; Weight 117.93 kg; Height cm10 5 ft. 3 in. ; Pain 10/10; 17:12 Body Mass Index 46.06 (117.93 kg, 160.02 cm) cm10 17:12 Pain Scale: Adult cm10 ED Course: 16:49 Patient arrived in ED. rg4 16:50 Davidson Ramirez PA is PHCP. cp 16:50 Davidson Camacho MD is Attending Physician. cp 17:13 Triage completed. cm10 17:13 Arm band placed on Patient placed in waiting room. cm10 17:25 Influenza Screen (a \T\ B) Sent. cm10 17:25 Strep Sent. cm10 17:25 COVID-19 SARS RT PCR Sent. cm10 18:54 Patient has correct armband on for positive identification. Bed in low position. Call cm10 light in reach. Provided Education on: ER process and procedures.. 18:55 No provider procedures requiring assistance completed. Patient did not have IV access cm10 during this emergency room visit. 19:06 Nicholas Fernandez, RN is Primary Nurse. bp Administered Medications: 17:25 Drug: Acetaminophen PO 1000 mg PO once Route: PO; cm10 18:55 Follow up: Response: No adverse reaction cm10 19:15 Drug: Rocephin (cefTRIAXone) IM 1 grams IM once Route: IM; Site: right gluteus; bp 19:34 Follow up: Response: No adverse reaction bp 19:15 Drug: Lortab PO Liquid 15 ml PO once Route: PO; bp 19:34 Follow up: Response: No adverse reaction bp 19:15 Drug: Dexamethasone PO 10 mg PO once Route: PO; bp 19:34 Follow up: Response: No adverse reaction bp Medication: 18:54 VIS not applicable for this client. cm10 Outcome: 19:04 Discharge ordered by . cp 19:35 Discharged to home ambulatory, bp 19:35 Condition: stable 19:35 Discharge instructions given to patient, Instructed on discharge instructions, follow up and referral plans. medication usage, Demonstrated understanding of instructions, follow-up care, medications, Prescriptions given X 2, 19:35 Patient left the ED. bp Signatures: Davidson Ramirez PA PA cp Garcia, Rubi rg4 Nicholas Fernandez RN RN bp Caryn De La Cruz RN RN cm10 Corrections: (The following items were deleted from the chart) 18:54 17:13 EENT: No deficits noted. No signs and/or symptoms were reported regarding the cm10 EENT system. cm10
[2023-02-27 20:14] VITALS: BP 132/92; TEMP 98.3; O2SAT 100
== END ==
LOC: ER 16:49
DX: J03.00 Acute streptococcal tonsillitis, unspecified (principal); N39.0 Urinary tract infection, site not specified; Z11.52 Encounter for screening for COVID-19
CPT/HCPCS: 81001; 81025; 87081; 87086; 87088; 87635; 87804; 96372; 99284; J0696; J1100